=== PATIENT | female | born 1995 | race Caucasian/White ===

== ENCOUNTER 2023-04-12 12:16 | Outpatient (REF) | payer OTHER, SELFPAY ==
[2023-04-12 13:25] LABS: Influenza Virus A Antigen Positive; Influenza Virus B Antigen Negative; Internal Control Within Normal Limits
== END 2023-04-12 12:17 | disposition home or self-care (01) ==
LOC: LAB 12:16
PROVIDERS: PCP Family Medicine; Visit Provider Family Medicine
DX: R05.9 Cough, unspecified (principal)
CPT/HCPCS: 87804

== ENCOUNTER 2023-06-08 15:52 | Outpatient (OUT) | payer OTHER, SELFPAY ==
[2023-06-08 16:46] LABS: Estimated Average Glucose 100 mg/dL; Glycohemoglobin A1C 5.1 % (4.5-6.2)
[2023-06-10 06:09] LABS: HBsAg Screen Negative (Negative); HCV Ab Non Reactive (Non Reactive); HIV Ab/p24 Ag Screen Non Reactive (Non Reactive); Hep A Ab, IgM Negative (Negative); Hep B Core Ab, IgM Negative (Negative)
[2023-06-10 11:09] LABS: Rapid Plasma Reagin, Quant Non Reactive titer (NonRea<1:1)
== END 2023-06-08 15:53 | disposition home or self-care (01) ==
LOC: LAB 15:54
PROVIDERS: PCP Family Medicine; Visit Provider Obstetrics & Gynecology
DX: R10.2 Pelvic and perineal pain (principal); B37.0 Candidal stomatitis
CPT/HCPCS: 36415; 80074; 83036; 86592; 87389

== ENCOUNTER 2023-07-06 22:16 | Outpatient (REF) | payer OTHER, SELFPAY ==
[2023-07-12 13:09] LABS: Age Gdln ACOG Testing Note (.); IGP, rfx Aptima HPV ASCU Note (.)
== END 2023-07-06 22:17 | disposition home or self-care (01) ==
LOC: LAB 22:16
PROVIDERS: PCP Family Medicine; Visit Provider Obstetrics & Gynecology
DX: Z01.419 Encounter for gynecological examination (general) (routine) without abnormal findings (principal)
CPT/HCPCS: G0145

== ENCOUNTER 2023-12-28 16:19 | Outpatient (OUT) | payer OTHER, SELFPAY ==
--- OUTSIDE RECORDS SUMMARY | 2023-12-28 16:27 | XMS_ITS | CCD ---
Author Organization [facility] CliniSynh Care Team Providers Care Surveillance Systems Engineer Name Role Phone Stephanie Laguerre Primary Care Physician [phone] RAJIV, DR CELESTIN Consulting Unavailable RAJIV, DR CELESTIN Admitting Unavailable REQUEST, DR NONE LISTED Primary Care Unavaila ble RAJIV, DR CELESTIN Attending Unavailable RAJIV, DR CELESTIN Consulting Unavailable RAJIV, DR CELESTIN Admitting Unavailable REQUEST, DR DANIELA LISTED Primary Care Unavaila ble RAJIV, DR CELESTIN Attending Unavailable LCY, DR BROWN Primary Care Unavailable HOY, DR BROWN Admitting Unavailable HOY, DR BROWN Attending Unavailable HOY, DR BROWN Consulting Unavailable WEST, DR NELLY Epstein Consulting Unavailable MARILYN SHAW Consulting Unavailable NILL, DR CALL Attending Unavailable NILL, DR CALL Admitting Unavailable HOY, DR BROWN Primary Care Unavailable SHADE, DR BROWN Consulting Unavailable RAJIV, DR CELESTIN Consulting Unavailable RAJIV, DR CELESTIN Admitting Unavailable REQUEST, DR DANIELA LISTED Primary Care Unavaila ble RAJIV, DR CELESTIN Attending Unavailable KARASIK, DR SHIPMAN Attending Unavailable KARASIK, DR SHIPMAN Consulting Unavailable KARASIK, DR SHIPMAN Admitting Unavailable REQUEST, DR NONE LISTED Primary Care Unavaila ble ABDIFATAH, DR NELLY Epstein Consulting Unavailable RAJIV, DR CELESTIN Consulting Unavailable RAJIV, DR CELESTIN Consulting Unavailable RAJIV, DR CELESTIN Admitting Unavailable REQUEST, DR NONE LISTED Primary Care Unavaila ble RAJIV, DR CELESTIN Attending Unavailable ZIEBMARLON, DR TEENA Sanchez Consulting Unavailable RAJIV, DR CELESTIN Consulting Unavailable RAJIV, DR CELESTIN Admitting Unavailable HOY, DR BROWN Primary Care Unavailable RAJIV, DR CELESTIN Attending Unavailable RAJIV, DR CELESTIN Admitting Unavailable RAJIV, DR CELESTIN Primary Care Unavailable ABDIFATAH, DR NELLY Epstein Consulting Unavailable RAJIV, DR CELESTIN Attending Unavailable RAJIV, DR CELESTIN Consulting Unavailable RAJIV, DR CELESTIN Consulting Unavailable RAJIV, DR CELESTIN Admitting Unavailable REQUEST, DR NONE LISTED Primary Care Unavaila ble RAJIV, DR CELESTIN Attending Unavailable RAJIV, DR CELESTIN Consulting Unavailable RAJIV, DR CELESTIN Admitting Unavailable RAJIV, DR CELESTIN Primary Care Unavailable RAJIV, DR CELESTIN Attending Unavailable RAJIV, DR CELESTIN Admitting Unavailable RAJIV, DR CELESTIN Primary Care Unavailable WEST, DR NELLY Epstein Consulting Unavailable RAJIV, DR CELESTIN Attending Unavailable RAJIV, DR CELESTIN Consulting Unavailable RAJIV, DR CELESTIN Consulting Unavailable RAJIV, DR CELESTIN Admitting Unavailable RAJIV, DR CELESTIN Attending Unavailable REQUEST, DR NONE LISTED Primary Care Unavaila ble HOY, DR BROWN Admitting Unavailable HOY, DR BROWN Attending Unavailable HOY, DR BROWN Consulting Unavailable HOY, DR BROWN Primary Care Unavailable RAJIV, DR CELESTIN Admitting Unavailable WEST, DR NELLY Epstein Consulting Unavailable REQUEST, DR NONE LISTED Primary Care Unavaila ble RAJIV, DR CELESTIN Attending Unavailable RAJIV, DR CELESTIN Consulting Unavailable VALERIA, MARILYN Admitting Unavailable VALERIA, MARILYN Attending Unavailable RAJIV, DR CELESTIN Primary Care Unavailable Mayco, Nelly Consulting Unavailable VALERIA, MARILYN Consulting Unavailable KARASIK, DR SHIPMAN Consulting Unavailable KARASIK, DR SHIPMAN Admitting Unavailable KARASIK, DR SHIPMAN Attending Unavailable REQUEST, DR NONE LISTED Primary Care Unavaila ble RAJIV, DR CELESTIN Consulting Unavailable ZIEBER, DR TEENA Sanchez Consulting Unavailable KARASIK, DR SHIPMAN Consulting Unavailable KARASIK, DR SHIPMAN Admitting Unavailable KARASIK, DR SHIPMAN Attending Unavailable REQUEST, DR NONE LISTED Primary Care Unavaila ble RAJIV, DR CELESTIN Consulting Unavailable ZIEBER, DR TEENA Sanchez Consulting Unavailable KARASIK, DR SHIPMAN Attending Unavailable KARASIK, DR SHIPMAN Consulting Unavailable KARASIK, DR SHIPMAN Admitting Unavailable REQUEST, DR NONE LISTED Primary Care Unavaila ble RAJIV, DR CELESTIN Consulting Unavailable RAJIV, DR CELESTIN Admitting Unavailable RAJIV, DR CELESTIN Attending Unavailable REQUEST, DR NONE LISTED Primary Care Unavaila ble RAJIV, DR CELESTIN Consulting Unavailable RAJIV, DR CELESTIN Admitting Unavailable RAJIV, DR CELESTIN Attending Unavailable REQUEST, DR NONE LISTED Primary Care Unavaila ble KARASIK, DR SHIPMAN Attending Unavailable KARASIK, DR SHIPMAN Consulting Unavailable KARASIK, DR SHIPMAN Admitting Unavailable REQUEST, NONE LISTED Primary Care Unavaila ble WEST, DR NELLY Epstein Consulting Unavailable RAJIV, DR CELESTIN Consulting Unavailable RAJIV, DR CELESTIN Attending Unavailable RAJIV, DR CELESTIN Consulting Unavailable RAJIV, DR CELESTIN Admitting Unavailable REQUEST, DR NONE LISTED Primary Care Unavaila ble KARASIK, DR SHIPMAN Consulting Unavailable KARASIK, DR SHIPMAN Admitting Unavailable KARASIK, DR SHIPMAN Attending Unavailable REQUEST, DR NONE LISTED Primary Care Unavaila ble WEST, DR NELLY Epstein Consulting Unavailable RAJIV, DR CELESTIN Consulting Unavailable RAJIV, DR CELESTIN Admitting Unavailable RAJIV, DR CELESTIN Consulting Unavailable RAJIV, DR CELESTIN Attending Unavailable REQUEST, DR NONE LISTED Primary Care Unavaila ble ZIEBER, DR TEENA Sanchez Consulting Unavailable RAJIV, DR CELESTIN Admitting Unavailable REQUEST, DR NONE LISTED Primary Care Unavaila ble RAJIV, DR CELESTIN Attending Unavailable NILL, DR CALL Attending Unavailable NILL, DR CALL Admitting Unavailable HOY, DR BROWN Primary Care Unavailable HOY, DR BROWN Consulting Unavailable NILL, DR CALL Consulting Unavailable BLAKE, ROHAN Consulting Unavailable MCCORNACK, TEENA Consulting Unavailable VALERIA, MARILYN Admitting Unavailable VALERIA, MARILYN Attending Unavailable RAJIV, DR CELESTIN Primary Care Unavailable TRIPLETT, DR HERNANDEZ Consulting Unavailable RAJIV, DR CELESTIN Consulting Unavailable RAJIV, DR CELESTIN Admitting Unavailable RAJIV, DR CELESTIN Attending Unavailable REQUEST, DR NONE LISTED Primary Care Unavaila ble AGUBOSIM, MISAEL Consulting Unavailable RAJIV, DR CELESTIN Procedure Practitioner Unavailab le RAJIV, DR CELESTIN Admitting Unavailable WEST, DR NELLY Epstein Consulting Unavailable RAJIV, DR CELESTIN Attending Unavailable REQUEST, DR DANIELA LISTED Primary Care Unavaila ble RAJIV, DR CELESTIN Consulting Unavailable NILL, DR CALL Consulting Unavailable NILL, DR CALL Admitting Unavailable NILL, DR CALL Attending Unavailable HOY, DR BROWN Primary Care Unavailable RAJIV, DR CELESTIN Admitting Unavailable RAJIV, DR CELESTIN Attending Unavailable REQUEST, DR NONE LISTED Primary Care Unavaila ble RAJIV, DR CELESTIN Consulting Unavailable RAJIV, DR CELESTIN Admitting Unavailable RAJIV, DR CELESTIN Primary Care Unavailable RAJIV, DR CELESTIN Attending Unavailable RAJIV, DR CELESTIN Admitting Unavailable RAJIV, DR CELESTIN Consulting Unavailable RAJIV, DR CELESTIN Attending Unavailable REQUEST, NONE LISTED Primary Care Unavaila ble RAJIV, DR CELESTIN Attending Unavailable RAJIV, DR CELESTIN Admitting Unavailable REQUEST, NONE LISTED Primary Care Unavaila ble KARASIK, DR SHIPMAN Consulting Unavailable KARASIK, DR SHIPMAN Admitting Unavailable KARASIK, DR SHIPMAN Attending Unavailable REQUEST, NONE LISTED Primary Care Unavaila ble RAJIV, DR CELESTIN Consulting Unavailable ZIEBER, DR TEENA Sanchez Consulting Unavailable RAJIV, DR CELESTIN Admitting Unavailable RAJIV, DR CELESTIN Attending Unavailable REQUEST, NONE LISTED Primary Care Unavaila ble RAJIV, DR CELESTIN Admitting Unavailable REQUEST, NONE LISTED Primary Care Unavaila ble RAJIV, DR CELESTIN Attending Unavailable Shade UNDERWOOD, Stephanie Primary Care Provider [phone] FAWAD VANCE Attending Unavailable RAJIV, FAWAD Attending Unavailable RAJIV, FAWAD Attending Unavailable Medications Current Medications Medication Drug Class(es) Dates Sig (Normalized) Sig (Original) b complex vitamins capsule (3 sources) take 1 capsule by mouth once daily b complex vitamins capsule Take 1 capsule by mouth Daily Active ibuprofen 800 mg oral tablet (2 sources) Nonsteroidal Anti-inflammatory Drug Start: 08-21-2021 take 1 tablet by mouth every eight hours as needed for pain ibuprofen 800 mg Tab 800 mg = 1 tab(s), Oral, q8hr, PRN as needed for pain, Refills(s) 0 Start Date: 08/21/21 Status: Ordered levonorgestrel 0.234524 mg/hr intrauterine system (3 sources) Progestin, Progestin-containi ng Intrauterine Device Levonorgestrel (Mirena, 52 MG,) 20 MCG/DAY intrauterine device as directed Intrauterine Active 24 hr metFORMIN hydrochloride 500 mg extended release oral tablet (2 sources) Biguanide Start: 12-26-2023 End: 01-25-2024 take 1 tablet by mouth every twenty-four hours at mealtime metFORMIN XR (Glucophage-XR) 500 MG 24 hr tablet Indications: Encounter for weight management Take 1 tablet (500 mg) by mouth in the evening. Take with meals Do not crush, chew, or split. 30 tablet 11 12/26/2023 01/25/2024 Active multivitamin with minerals (Cerovite) 18-400 mg-mcg tablet tablet (3 sources) take 1 tablet by mouth once daily multivitamin with minerals (Cerovite) 18-400 mg-mcg tablet tablet Take 1 tablet by mouth Daily Active [place] (No Known Home Meds) (1 source) Start: 11-28-2023 [place] (No Known Home Meds) Active November 28, 2023 12:00am Multivitamins with Vitamin B Complex, Vitamin C, Minerals and L-Methylfolate oral capsule (2 sources) Start: 08-21-2021 Multivitamins with Vitamin B Complex, Vitamin C, Minerals and L-Methylfolate oral capsule 1 cap(s), Oral, Daily, 30 cap(s), Refill(s) 0 Start Date: 08/21/21 Status: Ordered Zofran ODT 4 mg Tab-Dis (1 source) Start: 08-09-2017 take 1 tablet by mouth three times daily Zofran ODT 4 mg Tab-Dis 4 mg = 1 tab(s), Oral, TID, # 15 tab(s), Refills(s) 0 Start Date: 08/09/17 Status: Ordered Completed/Discontinued Medications Medication Drug Class(es) Dates Sig (Normalized) Sig (Original) nystatin 657369 unt/ml oral suspension (1 source) Polyene Antifungal Start: 06-07-2023 End: 11-28-2023 take 1 mL by mouth every six hours Nystatin Discontinued 4 ML PO Q6H 224 14 June 07, 2023 12:00am November 28, 2023 4:45pm Problems Active Problems Problem Classification Problem Date Documented Date Episodic/Chronic Abdominal pain (13 sources) Unspecified abdominal pain; Translations: [Right upper quadrant pain] Onset: 02-09-2021 Episodic Administrative/social admission (4 sources) Patient encounter status; Translations: [Persons encountering health services in other specified circumstances] Onset: 12-26-2023 12-26-2023 Episodic Asthma (3 sources) Asthma; Translations: [Unspecified asthma, uncomplicated] Onset: 09-18-2021 08-21-2021 Chronic Attention-deficit, conduct, and disruptive behavior disorders (2 sources) Attention deficit hyperactivity disorder 08-21-2021 Chronic Attention-deficit, conduct, and disruptive behavior disorders (1 source) Attention-deficit hyperactivity disorder, unspecified type; Translations: [ADHD UNSPECIFIED TYPE] Onset: 09-18-2021 Chronic Biliary tract disease (3 sources) Chronic cholecystitis with calculus; Translations: [Calculus of gallbladder with chronic cholecystitis without obstruction] Onset: 09-18-2021 Episodic Contraceptive and procreative management (8 sources) Intrauterine contraceptive device in situ; Translations: [Encounter for routine checking of intrauterine contraceptive device] Onset: 12-26-2023 12-26-2023 Episodic Deficiency and other anemia (1 source) Iron deficiency anemia, unspecified; Translations: [IRON DEFICIENCY ANEMIA UNSPECIFIED] Onset: 08-19-2021 Episodic Diseases of mouth; excluding dental (2 sources) Ulcer of mouth; Translations: [Other forms of stomatitis] 11-28-2023 Episodic Esophageal disorders (3 sources) Gastroesophageal reflux disease; Translations: [Gastro-esophageal reflux disease without esophagitis] Onset: 09-18-2021 08-21-2021 Chronic Fetopelvic disproportion; obstruction (1 source) Maternal care for disproportion, unspecified; Translations: [MATERNAL CARE FOR DISPROPORTION UNS] Onset: 07-23-2021 Episodic Fluid and electrolyte disorders (1 source) Dehydration; Translations: [DEHYDRATION] Onset: 08-19-2021 Episodic Headache; including migraine (2 sources) Migraine 08-21-2021 Chronic Malposition; malpresentation (1 source) Maternal care for high head at term, not applicable or unspecified; Translations: [MATERNAL CARE HIGH HEAD TERM NA/UNS] Onset: 07-23-2021 Episodic Menstrual disorders (8 sources) Irregular menstruation, unspecified; Translations: [Irregular periods] Onset: 12-05-2020 Chronic Other complications of ; puerperium affecting management of mother (1 source) Anemia of the puerperium; Translations: [ANEMIA OF THE PUERPERIUM] Onset: 08-19-2021 Chronic Other complications of ; puerperium affecting management of mother (1 source) Other complications of the puerperium, not elsewhere classified; Translations: [OTHER COMPLICATIONS PUERPERIUM NEC] Onset: 08-19-2021 Episodic Other complications of (5 sources) Other specified related conditions, third trimester; Translations: [OTH SPEC PREG RELATED COND 3RD TRI] Onset: 06-05-2021 Episodic Other complications of (5 sources) Maternal care for excessive growth, third trimester, not applicable or unspecified; Translations: [MAT CARE EXCSS FTL GRTH 3RD TRI UNS] Onset: 07-02-2021 Episodic Other endocrine disorders (4 sources) Polycystic ovary syndrome; Translations: [Polycystic ovarian syndrome] Onset: 12-26-2023 12-26-2023 Chronic Other nutritional; endocrine; and metabolic disorders (2 sources) Body mass index 30+ - obesity 09-01-2021 Chronic Other nutritional; endocrine; and metabolic disorders (3 sources) Obese class I; Translations: [Class 1 obesity] Onset: 08-11-2022 08-11-2022 Chronic Other and delivery including normal (14 sources) Encounter for care and examination of lactating mother; Translations: [Encounter for routine follow-up] Onset: 12-12-2020 Episodic Other screening for suspected conditions (not mental disorders or infectious disease) (14 sources) Other specified abnormal findings of blood chemistry; Translations: [Encounter for screening for Streptococcus B] Onset: 12-27-2020 Episodic Other upper respiratory disease (1 source) Nasal congestion; Translations: [NASAL CONGESTION] Onset: 10-03-2021 Episodic Pancreatic disorders (not diabetes) (7 sources) Gallstone acute pancreatitis; Translations: [Biliary acute pancreatitis without necrosis or infection] Onset: 09-01-2021 Episodic Polyhydramnios and other problems of amniotic cavity (9 sources) Polyhydramnios, third trimester, not applicable or unspecified; Translations: [Polyhydramnios, unspecified trimester, not applicable or unspecified] Onset: 05-28-2021 Episodic Residual codes; unclassified (1 source) Type O blood, Rh negative; Translations: [TYPE O BLOOD RH NEGATIVE] Onset: 07-23-2021 Episodic Residual codes; unclassified (1 source) 39 weeks gestation of ; Translations: [39 WEEKS GESTATION OF ] Onset: 07-23-2021 Episodic Residual codes; unclassified (1 source) 38 weeks gestation of ; Translations: [38 WEEKS GESTATION OF ] Onset: 07-10-2021 Episodic Screening and history of mental health and substance abuse codes (1 source) Personal history of nicotine dependence; Translations: [PERSONAL HISTORY OF NICOTINE DEPEND] Onset: 07-23-2021 Episodic Unclassified (4 sources) CONTACT W/AND (SUSP) EXPOS COVID-19; Translations: [CONTACT W/AND (SUSP) EXPOS COVID-19] Onset: 09-16-2021 Unclassified (1 source) COUGH, UNSPECIFIED; Translations: [COUGH, UNSPECIFIED] Onset: 10-03-2021 Past or Other Problems Problem Classification Problem Date Documented Date Episodic/Chronic Diabetes mellitus without complication (4 sources) Other abnormal glucose; Translations: [OTHER ABNORMAL GLUCOSE] Onset: 04-27-2021 Episodic Hemorrhage during ; abruptio placenta; placenta previa (1 source) Low lying placenta NOS or without hemorrhage, second trimester; Translations: [LOW LYING PL NOS W/O HEMORR 2ND TRI] Onset: 03-10-2021 Episodic Immunizations and screening for infectious disease (5 sources) Encounter for screening for infections with a predominantly sexual mode of transmission; Translations: [Contact with and (suspected) exposure to infections with a predominantly sexual mode of transmission] Onset: 12-27-2020 Episodic Nausea and vomiting (1 source) Vomiting, unspecified; Translations: [VOMITING UNSPECIFIED] Onset: 06-09-2021 Episodic Other complications of ; puerperium affecting management of mother (4 sources) Maternal care for other (suspected) abnormality and damage, not applicable or unspecified; Translations: [MAT CARE OTH ABN DAMGE NA/UNS] Onset: 04-07-2021 Episodic Other complications of (1 source) Decreased movements, third trimester, not applicable or unspecified; Translations: [DECR MOVEMENTS 3RD TRI NA/UNS] Onset: 06-23-2021 Episodic Other complications of (4 sources) Other specified related conditions, second trimester; Translations: [OTH SPEC PREG RELATED COND 2ND TRI] Onset: 02-08-2021 Episodic Other female genital disorders (4 sources) Other specified noninflammatory disorders of vagina; Translations: [OTH SPEC NONINFLAMMATORY D/O VAGINA] Onset: 01-21-2021 Episodic Residual codes; unclassified (1 source) 37 weeks gestation of ; Translations: [37 WEEKS GESTATION OF ] Onset: 07-06-2021 Episodic Residual codes; unclassified (1 source) 36 weeks gestation of ; Translations: [36 WEEKS GESTATION OF ] Onset: 06-26-2021 Episodic Residual codes; unclassified (1 source) 35 weeks gestation of ; Translations: [35 WEEKS GESTATION OF ] Onset: 06-23-2021 Episodic Residual codes; unclassified (1 source) 34 weeks gestation of ; Translations: [34 WEEKS GESTATION OF ] Onset: 06-17-2021 Episodic Residual codes; unclassified (1 source) 33 weeks gestation of ; Translations: [33 WEEKS GESTATION OF ] Onset: 06-09-2021 Episodic Residual codes; unclassified (1 source) 32 weeks gestation of ; Translations: [32 WEEKS GESTATION OF ] Onset: 05-28-2021 Episodic Residual codes; unclassified (1 source) Unspecified blood type, Rh negative; Translations: [UNSPECIFIED BLOOD TYPE RH NEGATIVE] Onset: 04-30-2021 Episodic Residual codes; unclassified (1 source) 28 weeks gestation of ; Translations: [28 WEEKS GESTATION OF ] Onset: 04-30-2021 Episodic Residual codes; unclassified (1 source) 21 weeks gestation of ; Translations: [21 WEEKS GESTATION OF ] Onset: 03-10-2021 Episodic Residual codes; unclassified (1 source) 17 weeks gestation of ; Translations: [17 WEEKS GESTATION OF ] Onset: 02-09-2021 Episodic Residual codes; unclassified (1 source) Less than 8 weeks gestation of ; Translations: [< 8 WEEKS GESTATION ] Onset: 12-12-2020 Episodic Unclassified (1 source) CONTACT W/AND (SUSP) EXPOS COVID-19; Translations: [CONTACT W/AND (SUSP) EXPOS COVID-19] Onset: 09-30-2021 Results Test Name Value Interpretation Reference Range Facility No Panel Informationon 12-25 Carlyn Lopez LPN 12/27/2023 9:22 AM IUD Removal Date/Time: 12/26/2023 5:08 PM Performed by: Fawad Vance DO Authorized by: Fawad Vance DO Consent: Consent obtained: Verbal Consent given by: Patient Procedure risks and benefits discussed: yes Patient questions answered: yes Patient agrees, verbalizes understanding, and wants to proceed: yes Educational handouts given: no Instructions and paperwork completed: no Procedure: Removed with no complications: yes Removal due to mechanical complications of IUD: no Removal due to infection and inflammatory reaction: no Other reason for removal: Pelvic Pain [facility] ([facility])on 09-05 SARS-CoV-2 (COVID-19) RNA LOUIE+probe Ql (Unsp spec) Not detected Normal NOT DETECTED [facility] Comment on above: Result Comment: This test is not yet approved or cleared by the [place] FDA. When there are no FDA-approved or cleared tests available, and other criteria are met, FDA can make tests available under an emergency access mechanism called an Emergency Use Authorization (EUA). The EUA for this test is supported by the [place] of Health and Human Service's (HHS's) declaration that circumstances exist to justify the emergency use of in vitro diagnostics for the detection and/or diagnosis of the virus that causes COVID-19. This EUA will remain in effect (meaning this test can be used) for the duration of the COVID-19 declaration justifying emergency of IVDs, unless it is terminated or revoked by FDA (after which the test may no longer be used). When diagnostic testing is negative, the possibility of a false negative should be considered in the context of a patient's recent exposures and the presence of clinical signs and symptoms consistent with SARS-CoV-2. Performed By: #### G 1HR #### [facility] [address] [address] [address] Emilia Snell Ambulatory Visit Summaryon 0 09-22-2021 Ambulatory Visit Summary MARISSA LARA :1995 Visit Date:09/22/2021 Ambulatory Visit Instructions Your Diagnosis Cholelithiasis with chronic cholecystitis Your Care Team Attending Physician - LEX UNDERWOOD, Jakub Sanchez Primary Care Physician - Stephanie Laguerre MD This Is Your Medications List Contact prescribing physician if questions or concerns ibuprofen (ibuprofen 800 mg Tab) multivitamin, ( Multivitamins with Vitamin B Complex, Vitamin C, Minerals and L-Methylfolate oral capsule) Procedures Performed Laparoscopic cholecystectomy (09/16/2021), section (2021), Tonsillectomy and adenoidectomy. Medications What How Much When Instructions Unchanged ibuprofen (ibuprofen 800 mg Tab) 1 Tablets By Mouth Every 8 hours as needed for as needed for pain Contact prescribing physician if questions or concerns Unchanged multivitamin, ( Multivitamins with Vitamin B Complex, Vitamin C, Minerals and L-Methylfolate oral capsule) 1 Capsules By Mouth Every day Contact prescribing physician if questions or concerns Allergies No Known Allergies No Known Medication Allergies Problems Ongoing - Any problem that you are currently receiving treatment for. ADHD Asthma BMI 30.0-30.9,adult Cholelithiasis with chronic cholecystitis Gallstone pancreatitis GERD (gastroesophageal reflux disease) Migraines Normal [facility] General Surgery Office/Clini c Noteon 09-22-2021 General Surgery Office/Clinic Note Chief Complaint post operative follow up HPI Staff 6 day post operative follow up post cholecystectomy. Denies pain, no use of pain medication. Denies bleeding or drainage. Denies nausea or vomiting. History of Present Illness 6 days s/p LS cholecystectomy, doing well, denies pain, no fevers, no drainage from incisions; no N/V; one episode of loose stools after fatty meal. Review of Systems ROS - Provider Constitutional: no fever, no sweats, no weight loss. Eyes: no glasses, no blurred vision, no visual loss. ENMT: no dentures, no hoarseness, no swallowing difficulties, no hearing loss, no ear infection(s), no nose bleeds. Cardiovascular: normal blood pressure, no chest pain, regular heartbeat, no heart murmur. Respiratory: no shortness of breath, no cough, no asthma, no wheezing. Gastrointestinal: no nausea, no vomiting, no diarrhea, no constipation, no blood in stool, no change in bowel habits, mild abdominal pain, no hepatitis. Genitourinary: no kidney stones, no urine infection, no dysuria. Musculoskeletal: no pain, no weakness. Skin: no changing moles, no rash, no skin lumps. Neurologic: no seizures, no epilepsy, no headache. Psychiatric: no emotional or psychiatric problem. Heme/Lymph: no bleeding problems, no anemia, no blood clots, no transfusions. Allergy/Immunologic: no swollen lymph nodes/glands, no IV drug abuse. Other: Additional ROS info: Except as noted in the above Review of Systems and in the History of Present Illness, all other systems have been reviewed and are negative or noncontributory. s Physical Exam abd: soft, nontender, nondistended; incisions without erythema or drainage, glue intact; normal bs. Assessment/Plan 1. Cholelithiasis with chronic cholecystitis (K80.10: Calculus of gallbladder with chronic cholecystitis without obstruction) doing well; continue no lifting > 10 lbs for 3 weeks; call with problems/questions. Follow-up No qualifying data available Problem List/Past Medical History Ongoing ADHD Asthma BMI 30.0-30.9,adult Cholelithiasis with chronic cholecystitis Gallstone pancreatitis GERD (gastroesophageal reflux disease) Migraines Historical No qualifying data Procedure/Surgical History Laparoscopic cholecystectomy (09/16/2021), section (2021), Tonsillectomy and adenoidectomy. Medications ibuprofen 800 mg Tab, 800 mg= 1 tab(s), Oral, q8hr, PRN Multivitamins with Vitamin B Complex, Vitamin C, Minerals and L-Methylfolate oral capsule, 1 cap(s), Oral, Daily Allergies No Known Allergies No Known Medication Allergies Social History Alcohol - Denies Alcohol Use, 08/09/2017 Substance Abuse - Denies Substance Abuse, 08/09/2017 Tobacco - Denies Tobacco Use, 08/09/2017 Never (less than 100 in lifetime) Tobacco Use:. Never Smokeless Tobacco Use:., 09/01/2021 Family History Family history is negative Normal [facility] Comment on above: Result Comment: Elec tronically Signed By: LEX UNDERWOOD, Jakub Thomas\Date and Time Signed: 09/22/21 15:00 EDT Pathology Noteon 09-18-2021 Pathology Note [id number]:127 Normal [facility] Operative Reporton Operative Report [id number]:127 Normal [facility] PREG HCG QUALon 09-16-2021 , QUAL Negative Normal NEGATIVE [facility] Comment on above: Performed By: #### A BID #### [facility] [address] [place] [address] Dr. Emilia Snell Lab Reportson 09-14-2021 Lab Reports [id number]:127 Normal [facility] Covid-19 PCR (CVDTBH)on SARS-CoV-2 (COVID-19) RNA LOUIE+probe Ql (Unsp spec) Not detected Normal NOT DETECTED [facility] Comment on above: Result Comment: This test is not yet approved or cleared by the [place] FDA. When there are no FDA-approved or cleared tests available, and other criteria are met, FDA can make tests available under an emergency access mechanism called an Emergency Use Authorization (EUA). The EUA for this test is supported by the [employer] Feeder of Health and Human Service's (HHS's) declaration that circumstances exist to justify the emergency use of in vitro diagnostics for the detection and/or diagnosis of the virus that causes COVID-19. This EUA will remain in effect (meaning this test can be used) for the duration of the COVID-19 declaration justifying emergency of IVDs, unless it is terminated or revoked by FDA (after which the test may no longer be used). When diagnostic testing is negative, the possibility of a false negative should be considered in the context of a patient's recent exposures and the presence of clinical signs and symptoms consistent with SARS-CoV-2. Performed By: #### [facility] [place] [facility] [address] [place] [address] Dr. Emilia Snell Ambulatory Visit Summaryon 0 09-01-2021 Ambulatory Visit Summary MARISSA LARA :1995 Visit Date:09/01/2021 Ambulatory Visit Instructions Your Care Team Attending Physician - LEX UNDERWOOD, Jakub Sanchez Primary Care Physician - Stephanie Laguerre MD This Is Your Medications List Contact prescribing physician if questions or concerns ibuprofen (ibuprofen 800 mg Tab) multivitamin, ( Multivitamins with Vitamin B Complex, Vitamin C, Minerals and L-Methylfolate oral capsule) ondansetron (Zofran ODT 4 mg Tab-Dis) Procedures Performed section (2021), Tonsillectomy and adenoidectomy. Discharge Vitals Heart Rate (Peripheral) 79 Respiratory Rate 16 Blood Pressure 104/65 Height 170.18 cm Height 170.2 cm Weight 88.5 kg Weight 88.5 kg BMI 30.56 Medications What How Much When Instructions Unchanged ibuprofen (ibuprofen 800 mg Tab) 1 Tablets By Mouth Every 8 hours as needed for as needed for pain Contact prescribing physician if questions or concerns Unchanged multivitamin, ( Multivitamins with Vitamin B Complex, Vitamin C, Minerals and L-Methylfolate oral capsule) 1 Capsules By Mouth Every day Contact prescribing physician if questions or concerns Unchanged ondansetron (Zofran ODT 4 mg Tab-Dis) 1 Tablets By Mouth 3 times a day Contact prescribing physician if questions or concerns Allergies No Known Allergies No Known Medication Allergies Problems Ongoing - Any problem that you are currently receiving treatment for. ADHD Asthma BMI 30.0-30.9,adult GERD (gastroesophageal reflux disease) Migraines Normal [facility] Consent for Procedure/Surger yon 09-01-2021 Consent for Procedure/Surgery [id number]:127 Normal [facility] Physician Referralon 022 Physician Referral [id number] .[id number]:127 Normal [facility] AMYLASEon 08-16-2021 Amylase [Catalytic activity/Vol] 81 U/L Normal 25-115 [facility] Comment on above: Performed By: #### T NS #### [facility] [address] [place] [address] Dr. Emilia Snell CBC AUTO DIFFon 08-16-2021 BASO # 0.0 103/ul Normal 0.0-0.1 [facility] Comment on above: Performed By: #### T NS #### [facility] [address] [address] [address] Emilia Snell Basophils/100 WBC (Bld) 0.3 % Normal 0.2-2.0 [facility] Comment on above: Performed By: #### T NS #### [facility] [address] [place] [address] Dr. Emilia Snell EO # 0.3 103/ul Normal 0.0-0.7 [facility] Comment on above: Performed By: #### T NS #### [facility] [address] [place] [address] Dr. Emilia Snell Eosinophils/100 WBC (Bld) 3.0 % Normal 0.9-7.0 [facility] Comment on above: Performed By: #### T NS #### [facility] [address] [place] [address] Dr. Emilia Snell Erythrocyte distribution width (RBC) [Ratio] 13.0 % Normal 11.0-15.0 [facility] Comment on above: Performed By: #### T NS #### [facility] [address] [place] [address] Dr. Emilia Snell Hematocrit (Bld) [Volume fraction] 31.1 % Critically low 36.0-48.0 [facility] Comment on above: Performed By: #### T NS #### [facility] [address] [place] [address] Dr. Emilia Snell Hemoglobin (Bld) [Mass/Vol] 10.3 g/dL Critically low 12.0-16.0 [facility] Comment on above: Performed By: #### T NS #### [facility] [address] [place] [address] Dr. Emilia Snell IG # 0.03 10e3/ul Normal 0.00-0.03 [facility] Comment on above: Performed By: #### T NS #### [facility] [address] [place] [address] Dr. Emilia Snell IG % 0.3 % Normal 0.0-0.5 [facility] Comment on above: Performed By: #### T NS #### [facility] [address] [place] [address] Dr. Emilia Snell LYMPH # 2.2 103/ul Normal 1.2-3.8 [facility] Comment on above: Performed By: #### T NS #### [facility] [address] [place] [address] Dr. Emilia Snell Lymphocytes/100 WBC (Bld) 22.8 % Normal 20.5-60.0 [facility] Comment on above: Performed By: #### T NS #### [facility] [address] [place] [address] Dr. Emilia Snell MANUAL DIFF REQ NO Normal [facility] Comment on above: Performed By: #### T NS #### [facility] [address] [place] [address] Dr. Emilia Snell MCH (RBC) [Entitic mass] 30.1 pg Normal 26.7-34.0 [facility] Comment on above: Performed By: #### T NS #### [facility] [address] [place] [address] Dr. Emilia Snell MCHC (RBC) [Mass/Vol] 33.1 g/dL Normal 29.9-35.2 [facility] Comment on above: Performed By: #### T NS #### [facility] [address] [place] [address] Dr. Emilia Snell MCV (RBC) [Entitic vol] 90.9 fL Normal 81.0-99.0 [facility] Comment on above: Performed By: #### T NS #### [facility] [address] [place] [address] Dr. Emilia Snell MONO # 0.5 103/ul Normal 0.3-0.8 [facility] Comment on above: Performed By: #### T NS #### [facility] [address] [place] [address] Dr. Emilia Snell Monocytes/100 WBC (Bld) 5.3 % Normal 1.7-12.0 [facility] Comment on above: Performed By: #### T NS #### [facility] [address] [place] [address] Dr. Emilia Snell NEUT # 6.6 103/ul Critically high 1.4-6.5 [facility] Comment on above: Performed By: #### T NS #### [facility] [address] [place] [address] Dr. Emilia Snell Neutrophils/100 WBC (Bld) 68.3 % Normal 43.0-75.0 [facility] Comment on above: Performed By: #### T NS #### [facility] [address] [place] [address] Dr. Emilia Snell Platelet mean volume (Bld) [Entitic vol] 9.4 fL Critically low 9.5-13.5 [facility] Comment on above: Performed By: #### T NS #### [facility] [address] [place] [address] Dr. Emilia Snell PLT 292 103/ul Normal 150-450 [facility] Comment on above: Performed By: #### T NS #### [facility] [address] [address] [address] Emilia Snell RBC 3.42 106/ul Critically low 4.20-5.40 [facility] Comment on above: Performed By: #### T NS #### [facility] [address] [place] [address] Dr. Emilia Snell WBC 9.6 103/ul Normal 4.0-11.0 [facility] Comment on above: Performed By: #### T NS #### [facility] [address] [place] [address] Dr. Emilia Snell LIPASEon 08-16-2021 Lipase [Catalytic activity/Vol] 154.0 U/L Normal 73.0-393.0 [facility] Comment on above: Performed By: #### T NS #### [facility] [address] [place] [address] Dr. Emilia Snell PROF 14(COMP METB)on 022 Albumin [Mass/Vol] 3.1 g/dL Critically low 3.4-5.0 [facility] Comment on above: Performed By: #### T NS #### [facility] [address] [place] [address] Dr. Emilia Snell Albumin/Globulin [Mass ratio] 0.9 {ratio} Normal [facility] Comment on above: Performed By: #### T NS #### [facility] [address] [place] [address] Dr. Emilia Snell ALP [Catalytic activity/Vol] 257 U/L Critically high 46-116 [facility] Comment on above: Performed By: #### T NS #### [facility] [address] [address] [address] Emilia Snell ALT [Catalytic activity/Vol] 272 U/L Critically high 14-59 [facility] Comment on above: Performed By: #### T NS #### [facility] [address] [place] [address] Dr. Emilia Snell Anion gap [Moles/Vol] 16.1 mmol/L Normal [facility] Comment on above: Performed By: #### T NS #### [facility] [address] [address] [address] Emilia Snell AST [Catalytic activity/Vol] 76 U/L Critically high 15-37 [facility] Comment on above: Performed By: #### T NS #### [facility] [address] [place] [address] Dr. Emilia Snell Bilirubin [Mass/Vol] 0.6 mg/dL Normal 0.2-1.0 [facility] Comment on above: Performed By: #### T NS #### [facility] [address] [place] [address] Dr. Emilia Snell Calcium [Mass/Vol] 8.5 mg/dL Normal 8.5-10.1 [facility] Comment on above: Performed By: #### T NS #### [facility] [address] [place] [address] Dr. Emilia Snell Chloride [Moles/Vol] 106 mmol/L Normal 98-107 [facility] Comment on above: Performed By: #### T NS #### [facility] [address] [place] [address] Dr. Emilia Snell CO2 [Moles/Vol] 22.8 mmol/L Normal 21.0-32.0 [facility] Comment on above: Performed By: #### T NS #### [facility] [address] [place] [address] Dr. Emilia Snell Creatinine [Mass/Vol] 0.79 mg/dL Normal 0.55-1.02 [facility] Comment on above: Performed By: #### T NS #### [facility] [address] [place] [address] Dr. Emilia Snell EGFR-AF TURKISH >60 Normal >=60 [facility] Comment on above: Performed By: #### T NS #### [facility] [address] [address] [address] Emilia Snell EGFR-NON AF TURKISH >60 Normal >=60 [facility] Comment on above: Performed By: #### T NS #### [facility] [address] [address] [address] Emilia Snell Globulin (S) [Mass/Vol] 3.6 g/dL Normal [facility] Comment on above: Performed By: #### T NS #### [facility] [address] [address] [address] Emilia Snell Glucose [Mass/Vol] 89 mg/dL Normal 74-106 [facility] Comment on above: Performed By: #### T NS #### [facility] [address] [address] [address] Emilia Snell Potassium [Moles/Vol] 3.9 mmol/L Normal 3.5-5.1 [facility] Comment on above: Performed By: #### T NS #### [facility] [address] [address] [address] Emilia Snell Protein [Mass/Vol] 6.7 g/dL Normal 6.4-8.2 [facility] Comment on above: Performed By: #### T NS #### [facility] [address] [address] [address] Emilia Snell Sodium [Moles/Vol] 141 mmol/L Normal 136-145 [facility] Comment on above: Performed By: #### T NS #### [facility] [address] [address] [address] Emilia Snell Urea nitrogen [Mass/Vol] 13.0 mg/dL Normal 7.0-18.0 [facility] Comment on above: Performed By: #### T NS #### [facility] [address] [address] [address] Emilia Snell Urea nitrogen/Creatinine [Mass ratio] 16.5 mg/mg Normal [facility] Comment on above: Performed By: #### T NS #### [facility] [address] [place] [address] Dr. Emilia Snell AMYLASEon 08-15-2021 Amylase [Catalytic activity/Vol] 324 U/L Critically high 25-115 [facility] Comment on above: Performed By: #### A BID #### [facility] [address] [place] [address] Dr. Emilia Snell CBC AUTO DIFFon 08-15-2021 BASO # 0.0 103/ul Normal 0.0-0.1 [facility] Comment on above: Performed By: #### G LU1HR #### [facility] [address] [place] [address] Dr. Emilia Snell Basophils/100 WBC (Bld) 0.5 % Normal 0.2-2.0 [facility] Comment on above: Performed By: #### G LU1HR #### [facility] [address] [place] [address] Dr. Emilia Snell EO # 0.4 103/ul Normal 0.0-0.7 [facility] Comment on above: Performed By: #### G LU1HR #### [facility] [address] [place] [address] Dr. Emilia Snell Eosinophils/100 WBC (Bld) 4.0 % Normal 0.9-7.0 [facility] Comment on above: Performed By: #### G LU1HR #### [facility] [address] [place] [address] Dr. Emilia Snell Erythrocyte distribution width (RBC) [Ratio] 13.2 % Normal 11.0-15.0 [facility] Comment on above: Performed By: #### G LU1HR #### [facility] [address] [place] [address] Dr. Emilia Snell Hematocrit (Bld) [Volume fraction] 33.2 % Critically low 36.0-48.0 [facility] Comment on above: Performed By: #### G LU1HR #### [facility] [address] [place] [address] Dr. Emliia Snell Hemoglobin (Bld) [Mass/Vol] 10.7 g/dL Critically low 12.0-16.0 [facility] Comment on above: Performed By: #### G LU1HR #### [facility] [address] [place] [address] Dr. Emilia Snell IG # 0.02 10e3/ul Normal 0.00-0.03 [facility] Comment on above: Performed By: #### G LU1HR #### [facility] [address] [place] [address] Dr. Emilia Snell IG % 0.2 % Normal 0.0-0.5 [facility] Comment on above: Performed By: #### G LU1HR #### [facility] [address] [place] [address] Dr. Emilia Snell LYMPH # 1.9 103/ul Normal 1.2-3.8 [facility] Comment on above: Performed By: #### G LU1HR #### [facility] [address] [place] [address] Dr. Emilia Snell Lymphocytes/100 WBC (Bld) 21.8 % Normal 20.5-60.0 [facility] Comment on above: Performed By: #### G LU1HR #### [facility] [address] [place] [address] Dr. Emilia Snell MANUAL DIFF REQ NO Normal [facility] Comment on above: Performed By: #### G LU1HR #### [facility] [address] [place] [address] Dr. Emilia Snell MCH (RBC) [Entitic mass] 29.7 pg Normal 26.7-34.0 [facility] Comment on above: Performed By: #### G LU1HR #### [facility] [address] [place] [address] Dr. Emilia Snell MCHC (RBC) [Mass/Vol] 32.2 g/dL Normal 29.9-35.2 [facility] Comment on above: Performed By: #### G LU1HR #### [facility] [address] [place] [address] Dr. Emliia Snell MCV (RBC) [Entitic vol] 92.2 fL Normal 81.0-99.0 [facility] Comment on above: Performed By: #### G LU1HR #### [facility] [address] [place] [address] Dr. Emilia Snell MONO # 0.4 103/ul Normal 0.3-0.8 [facility] Comment on above: Performed By: #### G LU1HR #### [facility] [address] [place] [address] Dr. Emilia Snell Monocytes/100 WBC (Bld) 4.3 % Normal 1.7-12.0 [facility] Comment on above: Performed By: #### G LU1HR #### [facility] [address] [place] [address] Dr. Emilia Snell NEUT # 6.1 103/ul Normal 1.4-6.5 [facility] Comment on above: Performed By: #### G LU1HR #### [facility] [address] [place] [address] Dr. Emilia Snell Neutrophils/100 WBC (Bld) 69.2 % Normal 43.0-75.0 [facility] Comment on above: Performed By: #### G LU1HR #### [facility] [address] [place] [address] Dr. Emilia Snell Platelet mean volume (Bld) [Entitic vol] 9.3 fL Critically low 9.5-13.5 [facility] Comment on above: Performed By: #### G LU1HR #### [facility] [address] [place] [address] Dr. Emilia Snell PLT 277 103/ul Normal 150-450 [facility] Comment on above: Performed By: #### G LU1HR #### [facility] [address] [place] [address] Dr. Emilia Snell RBC 3.60 106/ul Critically low 4.20-5.40 [facility] Comment on above: Performed By: #### G LU1HR #### [facility] [address] [place] [address] Dr. Emilia Snell WBC 8.9 103/ul Normal 4.0-11.0 [facility] Comment on above: Performed By: #### G LU1HR #### [facility] [address] [place] [address] Dr. Emilia Snell LIPASEon 08-15-2021 Lipase [Catalytic activity/Vol] 1399.0 U/L Critically high 73.0-393.0 [facility] Comment on above: Performed By: #### A BID #### [facility] [address] [place] [address] Dr. Emilia Snell PROF 14(COMP METB)on 022 Albumin [Mass/Vol] 3.1 g/dL Critically low 3.4-5.0 [facility] Comment on above: Performed By: #### A BID #### [facility] [address] [place] [address] Dr. Emilia Snell Albumin/Globulin [Mass ratio] 0.8 {ratio} Normal [facility] Comment on above: Performed By: #### A BID #### [facility] [address] [place] [address] Dr. Emilia Snell ALP [Catalytic activity/Vol] 301 U/L Critically high 46-116 [facility] Comment on above: Performed By: #### A BID #### [facility] [address] [place] [address] Dr. Emilia Snell ALT [Catalytic activity/Vol] 384 U/L Critically high 14-59 [facility] Comment on above: Performed By: #### A BID #### [facility] [address] [place] [address] Dr. Emilia Snell Anion gap [Moles/Vol] 17.7 mmol/L Normal [facility] Comment on above: Performed By: #### A BID #### [facility] [address] [place] [address] Dr. Emilia Snell AST [Catalytic activity/Vol] 176 U/L Critically high 15-37 [facility] Comment on above: Performed By: #### A BID #### [facility] [address] [address] [address] Emilia Snell Bilirubin [Mass/Vol] 0.7 mg/dL Normal 0.2-1.0 [facility] Comment on above: Performed By: #### A BID #### [facility] [address] [place] [address] Dr. Emilia Snell Calcium [Mass/Vol] 8.3 mg/dL Critically low 8.5-10.1 [facility] Comment on above: Performed By: #### A BID #### [facility] [address] [place] [address] Dr. Emilia Snell Chloride [Moles/Vol] 106 mmol/L Normal 98-107 [facility] Comment on above: Performed By: #### A BID #### [facility] [address] [place] [address] Dr. Emilia Snell CO2 [Moles/Vol] 21.9 mmol/L Normal 21.0-32.0 [facility] Comment on above: Performed By: #### A BID #### [facility] [address] [place] [address] Dr. Emilia Snell Creatinine [Mass/Vol] 0.86 mg/dL Normal 0.55-1.02 [facility] Comment on above: Performed By: #### A BID #### [facility] [address] [place] [address] Dr. Emilia Snell EGFR-AF TURKISH >60 Normal >=60 [facility] Comment on above: Performed By: #### A BID #### [facility] [address] [place] [address] Dr. Emilia Snell EGFR-NON AF TURKISH >60 Normal >=60 [facility] Comment on above: Performed By: #### A BID #### [facility] [address] [place] [address] Dr. Emilia Snell Globulin (S) [Mass/Vol] 3.7 g/dL Normal [facility] Comment on above: Performed By: #### A BID #### [facility] [address] [place] [address] Dr. Emilia Snell Glucose [Mass/Vol] 58 mg/dL Critically low 74-106 [facility] Comment on above: Performed By: #### A BID #### [facility] [address] [address] [address] Emilia Snell Potassium [Moles/Vol] 3.6 mmol/L Normal 3.5-5.1 [facility] Comment on above: Performed By: #### A BID #### [facility] [address] [place] [address] Dr. Emilia Snell Protein [Mass/Vol] 6.8 g/dL Normal 6.4-8.2 [facility] Comment on above: Performed By: #### A BID #### [facility] [address] [place] [address] Dr. Emilia Snell Sodium [Moles/Vol] 142 mmol/L Normal 136-145 [facility] Comment on above: Performed By: #### A BID #### [facility] [address] [place] [address] Dr. Emilia Snell Urea nitrogen [Mass/Vol] 19.0 mg/dL Critically high 7.0-18.0 [facility] Comment on above: Performed By: #### A BID #### [facility] [address] [place] [address] Dr. Emilia Snell Urea nitrogen/Creatinine [Mass ratio] 22.1 mg/mg Normal [facility] Comment on above: Performed By: #### A BID #### [facility] [address] [place] [address] Dr. Emilia Snell AMYLASEon 08-14-2021 Amylase [Catalytic activity/Vol] 2198 U/L Critically high 25-115 [facility] Comment on above: Performed By: #### C VDTBH #### [facility] [address] [place] [address] Dr. Emilia Snell CBC AUTO DIFFon 08-14-2021 BASO # 0.0 103/ul Normal 0.0-0.1 [facility] Comment on above: Performed By: #### T NS #### [facility] [address] [place] [address] Dr. Emilia Snell Basophils/100 WBC (Bld) 0.4 % Normal 0.2-2.0 [facility] Comment on above: Performed By: #### T NS #### [facility] [address] [place] [address] Dr. Emilia Snell EO # 0.3 103/ul Normal 0.0-0.7 [facility] Comment on above: Performed By: #### T NS #### [facility] [address] [place] [address] Dr. Emilia Snell Eosinophils/100 WBC (Bld) 2.6 % Normal 0.9-7.0 [facility] Comment on above: Performed By: #### T NS #### [facility] [address] [place] [address] Dr. Emilia Snell Erythrocyte distribution width (RBC) [Ratio] 13.1 % Normal 11.0-15.0 [facility] Comment on above: Performed By: #### T NS #### [facility] [address] [place] [address] Dr. Emilia Snell Hematocrit (Bld) [Volume fraction] 38.5 % Normal 36.0-48.0 [facility] Comment on above: Performed By: #### T NS #### [facility] [address] [place] [address] Dr. Emilia Snell Hemoglobin (Bld) [Mass/Vol] 12.7 g/dL Normal 12.0-16.0 [facility] Comment on above: Performed By: #### T NS #### [facility] [address] [place] [address] Dr. Emilia Snell IG # 0.03 10e3/ul Normal 0.00-0.03 [facility] Comment on above: Performed By: #### T NS #### [facility] [address] [place] [address] Dr. Emilia Snell IG % 0.3 % Normal 0.0-0.5 [facility] Comment on above: Performed By: #### T NS #### [facility] [address] [place] [address] Dr. Emilia Snell LYMPH # 2.5 103/ul Normal 1.2-3.8 [facility] Comment on above: Performed By: #### T NS #### [facility] [address] [place] [address] Dr. Emilia Snell Lymphocytes/100 WBC (Bld) 25.8 % Normal 20.5-60.0 [facility] Comment on above: Performed By: #### T NS #### [facility] [address] [place] [address] Dr. Emilia Snell MANUAL DIFF REQ NO Normal [facility] Comment on above: Performed By: #### T NS #### [facility] [address] [place] [address] Dr. Emilia Snell MCH (RBC) [Entitic mass] 29.8 pg Normal 26.7-34.0 [facility] Comment on above: Performed By: #### T NS #### [facility] [address] [place] [address] Dr. Emilia Snell MCHC (RBC) [Mass/Vol] 33.0 g/dL Normal 29.9-35.2 [facility] Comment on above: Performed By: #### T NS #### [facility] [address] [place] [address] Dr. Emilia Snell MCV (RBC) [Entitic vol] 90.4 fL Normal 81.0-99.0 [facility] Comment on above: Performed By: #### T NS #### [facility] [address] [place] [address] Dr. Emilia Snell MONO # 0.4 103/ul Normal 0.3-0.8 [facility] Comment on above: Performed By: #### T NS #### [facility] [address] [place] [address] Dr. Emilia Snell Monocytes/100 WBC (Bld) 4.2 % Normal 1.7-12.0 [facility] Comment on above: Performed By: #### T NS #### [facility] [address] [place] [address] Dr. Emilia nSell NEUT # 6.5 103/ul Normal 1.4-6.5 [facility] Comment on above: Performed By: #### T NS #### [facility] [address] [place] [address] Dr. Emilia Snell Neutrophils/100 WBC (Bld) 66.7 % Normal 43.0-75.0 [facility] Comment on above: Performed By: #### T NS #### [facility] [address] [place] [address] Dr. Emilia Snell Platelet mean volume (Bld) [Entitic vol] 9.5 fL Normal 9.5-13.5 [facility] Comment on above: Performed By: #### T NS #### [facility] [address] [place] [address] Dr. Emilia Snell PLT 359 103/ul Normal 150-450 [facility] Comment on above: Performed By: #### T NS #### [facility] [address] [place] [address] Dr. Emilia Snell RBC 4.26 106/ul Normal 4.20-5.40 [facility] Comment on above: Performed By: #### T NS #### [facility] [address] [place] [address] Dr. Emilia Snell WBC 9.8 103/ul Normal 4.0-11.0 [facility] Comment on above: Performed By: #### T NS #### [facility] [address] [place] [address] Dr. Emilia Snell CULTURE BLOODon 08-14-2021 Microscopic examination of blood, culture Culture Observations: NO GROWTH AT 5 DAYS. Normal [facility] Comment on above: Performed By: #### G LU1HR #### [facility] [address] [place] [address] Dr. Emilia Snell Microscopic examination of blood, culture Culture Observations: NO GROWTH AT 5 DAYS. Normal [facility] Comment on above: Performed By: #### R HOG #### [facility] [address] [place] [address] Dr. Emilia Snell CULTURE URINEon 08-14-2021 CULTURE URINE Culture Observations : No growth Normal [facility] Comment on above: Performed By: #### R HOG #### [facility] [address] [place] [address] Dr. Emilia Snell Covid-19 PCR ([facility])on 08-05 SARS-CoV-2 (COVID-19) RNA LOUIE+probe Ql (Unsp spec) Not detected Normal NOT DETECTED [facility] Comment on above: Result Comment: When diagnostic testing is negative, the possibility of a false negative should be considered in the context of a patient's recent exposures and the presence of clinical signs and symptoms consistent with SARS-CoV-2. This test is not yet approved or cleared by the [place] FDA. When there are no FDA-approved or cleared tests available, and other criteria are met, FDA can make tests available under an emergency access mechanism called an Emergency Use Authorization (EUA). The EUA for this test is supported by the Griffin of Health and Human Service's declaration that circumstances exist to justify the emergency use of in vitro diagnostics for the detection and/or diagnosis of the virus that causes COVID-19. This EUA will remain in effect for the duration of the COVID-19 declaration justifying emergency of IVDs, unless it is terminated or revoked by the FDA (after which the test may no longer be used). Performed By: #### T NS #### [facility] [address] [place] [address] Dr. Emilia Snell ER URINE PROFILEon 2 Bilirubin Ql (U) Negative Normal NEGATIVE [facility] Comment on above: Performed By: #### C VDTBH #### [facility] [address] [place] [address] Dr. Emilia Snell Clarity (U) CLEAR Normal CLEAR [facility] Comment on above: Performed By: #### C VDTBH #### [facility] [address] [place] [address] Dr. Emilia Snell Color (U) YELLOW Normal YELLOW [facility] Comment on above: Performed By: #### C VDTBH #### [facility] [address] [place] [address] Dr. Emilia Snell ERUAHD A micrscopic examination will be performed if indicated. Normal [facility] Comment on above: Performed By: #### C VDTBH #### [facility] [address] [address] [address] Emilia Snell Glucose Ql (U) Negative Normal NEGATIVE [facility] Comment on above: Performed By: #### C VDTBH #### [facility] [address] [place] [address] Dr. Emilia Snell Hemoglobin Ql (U) TRACE-INTACT Abnormal NEGATIVE [facility] Comment on above: Performed By: #### C VDTBH #### [facility] [address] [place] [address] Dr. Emilia Snell Ketones Ql (U) Negative Normal NEGATIVE [facility] Comment on above: Performed By: #### C VDTBH #### [facility] [address] [place] [address] Dr. Emilia Snell LEUKOCYTES Negative Normal NEGATIVE [facility] Comment on above: Performed By: #### C VDTBH #### [facility] [address] [place] [address] Dr. Emilia nSell Nitrite Ql (U) Negative Normal NEGATIVE [facility] Comment on above: Performed By: #### C VDTBH #### [facility] [address] [place] [address] Dr. Emilia Snell pH (U) 8.0 [pH] Normal 5-9 [facility] Comment on above: Performed By: #### C VDTBH #### [facility] [address] [place] [address] Dr. Emilia Snell SPEC GRAVITY 1.010 Normal 1.005-<=1.025 [facility] Comment on above: Performed By: #### C VDTBH #### [facility] [address] [place] [address] Dr. Emilia Snell UA PROTEIN Negative Normal NEGATIVE/ TRACE [facility] Comment on above: Performed By: #### C VDTBH #### [facility] [address] [place] [address] Dr. Emilia Snell UR MICRO IND INDICATED Normal [facility] Comment on above: Performed By: #### C VDTBH #### [facility] [address] [place] [address] Dr. Emilia Snell Urobilinogen Qn (U) 0.2 {Mick'U}/dL Normal 0.2 - 1. 0 [facility] Comment on above: Performed By: #### C VDTBH #### [facility] [address] [place] [address] Dr. Emilia Snell LACTATE/LACTIC ACIDon 2021 Lactate [Moles/Vol] 0.5 mmol/L Normal 0.4-1.9 [facility] Comment on above: Performed By: #### T NS #### [facility] [address] [place] [address] Dr. Emilia Snell Lactate [Moles/Vol] 0.8 mmol/L Normal 0.4-1.9 [facility] Comment on above: Performed By: #### A BID #### [facility] [address] [place] [address] Dr. Emilia Snell LIPASEon 08-14-2021 Lipase [Catalytic activity/Vol] 68225.0 U/L Critically high 73.0-393.0 [facility] Comment on above: Performed By: #### C VDTBH #### [facility] [address] [place] [address] Dr. Emilia Snell URon 08-14-2021 , QUAL Negative Normal NEGATIVE [facility] Comment on above: Performed By: #### C VDTBH #### [facility] [address] [place] [address] Dr. Emilia Snell PROF 14(COMP METB)on 022 Albumin [Mass/Vol] 3.7 g/dL Normal 3.4-5.0 [facility] Comment on above: Performed By: #### C VDTBH #### [facility] [address] [place] [address] Dr. Emilia Snell Albumin/Globulin [Mass ratio] 0.9 {ratio} Normal [facility] Comment on above: Performed By: #### C VDTBH #### [facility] [address] [address] [address] Emilia Snell ALP [Catalytic activity/Vol] 412 U/L Critically high 46-116 [facility] Comment on above: Performed By: #### C VDTBH #### [facility] [address] [address] [address] Emilia Snell ALT [Catalytic activity/Vol] 664 U/L Critically high 14-59 [facility] Comment on above: Performed By: #### C VDTBH #### [facility] [address] [address] [address] Emilia Snell Anion gap [Moles/Vol] 11.3 mmol/L Normal [facility] Comment on above: Performed By: #### C VDTBH #### [facility] [address] [address] [address] Emilia Snell AST [Catalytic activity/Vol] 485 U/L Critically high 15-37 [facility] Comment on above: Performed By: #### C VDTBH #### [facility] [address] [address] [address] Emilia Snell Bilirubin [Mass/Vol] 0.7 mg/dL Normal 0.2-1.0 [facility] Comment on above: Performed By: #### C VDTBH #### [facility] [address] [place] [address] Dr. Emilia Snell Calcium [Mass/Vol] 8.8 mg/dL Normal 8.5-10.1 [facility] Comment on above: Performed By: #### C VDTBH #### [facility] [address] [address] [address] Emilia Snell Chloride [Moles/Vol] 102 mmol/L Normal 98-107 [facility] Comment on above: Performed By: #### C VDTBH #### [facility] [address] [address] [address] Emilia Snell CO2 [Moles/Vol] 30.2 mmol/L Normal 21.0-32.0 [facility] Comment on above: Performed By: #### C VDTBH #### [facility] [address] [address] [address] Emilia Snell Creatinine [Mass/Vol] 0.89 mg/dL Normal 0.55-1.02 [facility] Comment on above: Performed By: #### C VDTBH #### [facility] [address] [address] [address] Emilia Snell EGFR-AF TURKISH >60 Normal >=60 [facility] Comment on above: Performed By: #### C VDTBH #### [facility] [address] [place] [address] Dr. Emilia Snell EGFR-NON AF TURKISH >60 Normal >=60 [facility] Comment on above: Performed By: #### C VDTBH #### [facility] [address] [place] [address] Dr. Emilia Snell Globulin (S) [Mass/Vol] 3.9 g/dL Normal [facility] Comment on above: Performed By: #### C VDTBH #### [facility] [address] [place] [address] Dr. Emilia Snell Glucose [Mass/Vol] 126 mg/dL Critically high 74-106 [facility] Comment on above: Performed By: #### C VDTBH #### [facility] [address] [place] [address] Dr. Emilia Snell Potassium [Moles/Vol] 3.5 mmol/L Normal 3.5-5.1 [facility] Comment on above: Performed By: #### C VDTBH #### [facility] [address] [place] [address] Dr. Emilia Snell Protein [Mass/Vol] 7.6 g/dL Normal 6.4-8.2 [facility] Comment on above: Performed By: #### C VDTBH #### [facility] [address] [place] [address] Dr. Emilia Snell Sodium [Moles/Vol] 140 mmol/L Normal 136-145 [facility] Comment on above: Performed By: #### C VDTBH #### [facility] [address] [place] [address] Dr. Emilia Snell Urea nitrogen [Mass/Vol] 14.0 mg/dL Normal 7.0-18.0 [facility] Comment on above: Performed By: #### C VDTBH #### [facility] [address] [place] [address] Dr. Emilia Snell Urea nitrogen/Creatinine [Mass ratio] 15.7 mg/mg Normal [facility] Comment on above: Performed By: #### C VDTBH #### [facility] [address] [place] [address] Dr. Emilia Snell URINE MICROSCOPIC ONLYon BACTERIA SMALL Abnormal NONE SEEN [facility] Comment on above: Performed By: #### C VDTBH #### [facility] [address] [place] [address] Dr. Emilia Snell Bacteria identified Cx Nom (U) INDICATED Normal [facility] Comment on above: Performed By: #### C VDTBH #### [facility] [address] [place] [address] Dr. Emilia Snell CAST NONE SEEN Normal NONE SEEN [facility] Comment on above: Performed By: #### C VDTBH #### [facility] [address] [place] [address] Dr. Emilia Snell Crystals LM Nom (Urine sed) NONE SEEN Normal NONE SEEN [facility] Comment on above: Performed By: #### C VDTBH #### [facility] [address] [place] [address] Dr. Emilia Snell Epithelial cells LM Ql (Urine sed) MODERATE Abnormal NONE SEEN /RARE [facility] Comment on above: Performed By: #### C VDTBH #### [facility] [address] [place] [address] Dr. Emilia Snell MUCOUS NONE SEEN Normal NONE SEEN [facility] Comment on above: Performed By: #### C VDTBH #### [facility] [address] [place] [address] Dr. Emilia Snell RBC 0-2 Normal 0-2 [facility] Comment on above: Performed By: #### C VDTBH #### [facility] [address] [place] [address] Dr. Emilia Snell WBC 0-2 Abnormal NONE SEEN [facility] Comment on above: Performed By: #### [facility] #### [facility] [address] [place] [address] Dr. Emilia Snell US SINGLE QUAD RT UPPERon US SINGLE QUAD RT UPPER EXAMINATION: US SINGLE QUAD RT UPPER HISTORY: Pain COMPARISON: No relevant comparison available. FINDINGS: The liver is normal in size, contour and echotexture. No focal hepatic mass. Hepatopedal flow identified may portal vein with velocity of 28 cm/s. The visualized pancreas is normal in appearance The gallbladder is normal in size. The gallbladder wall measures 2.6 mm, normal. Layering echogenicity, likely cholelithiasis and gallbladder sludge. No pericholecystic fluid. Negative sonographic Khan sign. Common bile duct measures 5.3 mm. The right kidney is normal in appearance measuring 11.0 x 4.5 x 5.1 cm. No solid cortical mass or hydronephrosis. The cortex measures 1.2 cm. IMPRESSION: Cholelithiasis and gallbladder sludge without evidence of acute cholecystitis Electronically authenticated by: NELLY GARDINER Date: 2021-08-14 09:37 Normal [facility] ANTIBODY ID PANELon 07-16-19 22 ANTIBODY ID PANEL Antibody ID Anti-D Blood Bank Notes most likely due to Rhogam. Testing performed at [facility] ref lab Normal [facility] Comment on above: Performed By: #### A BID #### [facility] [address] [place] [address] Dr. Emilia Snell CBC AUTO DIFFon 07-12-2021 BASO # 0.0 103/ul Normal 0.0-0.1 [facility] Comment on above: Performed By: #### A BID #### [facility] [address] [place] [address] Dr. Emilia Snell Basophils/100 WBC (Bld) 0.1 % Critically low 0.2-2.0 [facility] Comment on above: Performed By: #### A BID #### [facility] [address] [place] [address] Dr. Emilia Snell EO # 0.0 103/ul Normal 0.0-0.7 [facility] Comment on above: Performed By: #### A BID #### [facility] [address] [place] [address] Dr. Emilia Snell Eosinophils/100 WBC (Bld) 0.1 % Critically low 0.9-7.0 [facility] Comment on above: Performed By: #### A BID #### [facility] [address] [place] [address] Dr. Emilia Snell Erythrocyte distribution width (RBC) [Ratio] 13.7 % Normal 11.0-15.0 [facility] Comment on above: Performed By: #### A BID #### [facility] [address] [place] [address] Dr. Emilia Snell Hematocrit (Bld) [Volume fraction] 25.7 % Critically low 36.0-48.0 [facility] Comment on above: Performed By: #### A BID #### [facility] [address] [place] [address] Dr. Emilia Snell Hemoglobin (Bld) [Mass/Vol] 8.5 g/dL Critically low 12.0-16.0 [facility] Comment on above: Performed By: #### A BID #### [facility] [address] [place] [address] Dr. Emilia Snell IG # 0.05 10e3/ul Critically high 0.00-0.03 [facility] Comment on above: Performed By: #### A BID #### [facility] [address] [place] [address] Dr. Emilia Snell IG % 0.3 % Normal 0.0-0.5 [facility] Comment on above: Performed By: #### A BID #### [facility] [address] [place] [address] Dr. Emilia Snell LYMPH # 2.9 103/ul Normal 1.2-3.8 [facility] Comment on above: Performed By: #### A BID #### [facility] [address] [place] [address] Dr. Emilia Snell Lymphocytes/100 WBC (Bld) 19.9 % Critically low 20.5-60.0 [facility] Comment on above: Performed By: #### A BID #### [facility] [address] [place] [address] Dr. Emilia Snell MANUAL DIFF REQ NO Normal [facility] Comment on above: Performed By: #### A BID #### [facility] [address] [place] [address] Dr. Emilia Snell MCH (RBC) [Entitic mass] 30.7 pg Normal 26.7-34.0 [facility] Comment on above: Performed By: #### A BID #### [facility] [address] [place] [address] Dr. Emilia Snell MCHC (RBC) [Mass/Vol] 33.1 g/dL Normal 29.9-35.2 [facility] Comment on above: Performed By: #### A BID #### [facility] [address] [place] [address] Dr. Emilia Snell MCV (RBC) [Entitic vol] 92.8 fL Normal 81.0-99.0 [facility] Comment on above: Performed By: #### A BID #### [facility] [address] [place] [address] Dr. Emilia Snell MONO # 1.0 103/ul Critically high 0.3-0.8 [facility] Comment on above: Performed By: #### A BID #### [facility] [address] [place] [address] Dr. Emilia Snell Monocytes/100 WBC (Bld) 6.8 % Normal 1.7-12.0 [facility] Comment on above: Performed By: #### A BID #### [facility] [address] [place] [address] Dr. Emilia Snell NEUT # 10.4 103/ul Critically high 1.4-6.5 [facility] Comment on above: Performed By: #### A BID #### [facility] [address] [place] [address] Dr. Emilia Snell Neutrophils/100 WBC (Bld) 72.8 % Normal 43.0-75.0 [facility] Comment on above: Performed By: #### A BID #### [facility] [address] [place] [address] Dr. Emilia Snell Platelet mean volume (Bld) [Entitic vol] 10.2 fL Normal 9.5-13.5 [facility] Comment on above: Performed By: #### A BID #### [facility] [address] [place] [address] Dr. Emilia Snell PLT 199 103/ul Normal 150-450 [facility] Comment on above: Performed By: #### A BID #### [facility] [address] [place] [address] Dr. Emilia Snell RBC 2.77 106/ul Critically low 4.20-5.40 [facility] Comment on above: Performed By: #### A BID #### [facility] [address] [place] [address] Dr. Emilia Snell WBC 14.3 103/ul Critically high 4.0-11.0 [facility] Comment on above: Performed By: #### A BID #### [facility] [address] [place] [address] Dr. Emilia Snell SCREENon 07-12-2021 SCREEN Negative Normal [facility] Comment on above: Performed By: #### F ETSCRN #### [facility] [address] [place] [address] Dr. Emilia Snell RHOGAMon 07-12-2021 RHOGAM Status Information Issued Quantity 1 Product ID Rh Immune Globulin Lot Number [id number] Issue Date/Time [id number] Normal [facility] Comment on above: Performed By: #### R HOG #### [facility] [address] [place] [address] Dr. Emilia Snell CBC AUTO DIFFon 07-11-2021 BASO # 0.0 103/ul Normal 0.0-0.1 [facility] Comment on above: Performed By: #### R HOG #### [facility] [address] [place] [address] Dr. Emilia Snell Basophils/100 WBC (Bld) 0.3 % Normal 0.2-2.0 [facility] Comment on above: Performed By: #### R HOG #### [facility] [address] [place] [address] Dr. Emilia Snell EO # 0.2 103/ul Normal 0.0-0.7 [facility] Comment on above: Performed By: #### R HOG #### [facility] [address] [place] [address] Dr. Emilia Snell Eosinophils/100 WBC (Bld) 2.4 % Normal 0.9-7.0 [facility] Comment on above: Performed By: #### R HOG #### [facility] [address] [place] [address] Dr. Emilia Snell Erythrocyte distribution width (RBC) [Ratio] 13.4 % Normal 11.0-15.0 [facility] Comment on above: Performed By: #### R HOG #### [facility] [address] [place] [address] Dr. Emilia Snell Hematocrit (Bld) [Volume fraction] 34.4 % Critically low 36.0-48.0 [facility] Comment on above: Performed By: #### R HOG #### [facility] [address] [place] [address] Dr. Emilia Snell Hemoglobin (Bld) [Mass/Vol] 12.0 g/dL Normal 12.0-16.0 [facility] Comment on above: Performed By: #### R HOG #### [facility] [address] [place] [address] Dr. Emilia Snell IG # 0.03 10e3/ul Normal 0.00-0.03 [facility] Comment on above: Performed By: #### R HOG #### [facility] [address] [place] [address] Dr. Emilia Snell IG % 0.3 % Normal 0.0-0.5 [facility] Comment on above: Performed By: #### R HOG #### [facility] [address] [place] [address] Dr. Emilia Snell LYMPH # 3.6 103/ul Normal 1.2-3.8 [facility] Comment on above: Performed By: #### R HOG #### [facility] [address] [place] [address] Dr. Emilia Snell Lymphocytes/100 WBC (Bld) 35.6 % Normal 20.5-60.0 [facility] Comment on above: Performed By: #### R HOG #### [facility] [address] [place] [address] Dr. Emilia Snell MANUAL DIFF REQ NO Normal [facility] Comment on above: Performed By: #### R HOG #### [facility] [address] [place] [address] Dr. Emilia Snell MCH (RBC) [Entitic mass] 31.3 pg Normal 26.7-34.0 [facility] Comment on above: Performed By: #### R HOG #### [facility] [address] [place] [address] Dr. Emilia Snell MCHC (RBC) [Mass/Vol] 34.9 g/dL Normal 29.9-35.2 [facility] Comment on above: Performed By: #### R HOG #### [facility] [address] [place] [address] Dr. Emilia Snell MCV (RBC) [Entitic vol] 89.6 fL Normal 81.0-99.0 [facility] Comment on above: Performed By: #### R HOG #### [facility] [address] [place] [address] Dr. Emilia Snell MONO # 0.7 103/ul Normal 0.3-0.8 [facility] Comment on above: Performed By: #### R HOG #### [facility] [address] [place] [address] Dr. Emilia Snell Monocytes/100 WBC (Bld) 6.5 % Normal 1.7-12.0 [facility] Comment on above: Performed By: #### R HOG #### [facility] [address] [place] [address] Dr. Emilia Snell NEUT # 5.5 103/ul Normal 1.4-6.5 [facility] Comment on above: Performed By: #### R HOG #### [facility] [address] [address] [address] Emilia Snell Neutrophils/100 WBC (Bld) 54.9 % Normal 43.0-75.0 [facility] Comment on above: Performed By: #### R HOG #### [facility] [address] [address] [address] Emilia Snell Platelet mean volume (Bld) [Entitic vol] 11.2 fL Normal 9.5-13.5 [facility] Comment on above: Performed By: #### R HOG #### [facility] [address] [address] [address] Emilia Snell PLT 255 103/ul Normal 150-450 [facility] Comment on above: Performed By: #### R HOG #### [facility] [address] [address] [address] Emilia Snell RBC 3.84 106/ul Critically low 4.20-5.40 [facility] Comment on above: Performed By: #### R HOG #### [facility] [address] [address] [address] Emilia Snell WBC 10.1 103/ul Normal 4.0-11.0 [facility] Comment on above: Performed By: #### R HOG #### [facility] [address] [place] [address] Dr. Emilia Snell [facility]on SARS-CoV-2 (COVID-19) RNA LOUIE+probe Ql (Unsp spec) Not detected Normal NOT DETECTED [facility] Comment on above: Result Comment: When diagnostic testing is negative, the possibility of a false negative should be considered in the context of a patient's recent exposures and the presence of clinical signs and symptoms consistent with SARS-CoV-2. This test is not yet approved or cleared by the [place] FDA. When there are no FDA-approved or cleared tests available, and other criteria are met, FDA can make tests available under an emergency access mechanism called an Emergency Use Authorization (EUA). The EUA for this test is supported by the Griffin of Health and Human Service's declaration that circumstances exist to justify the emergency use of in vitro diagnostics for the detection and/or diagnosis of the virus that causes COVID-19. This EUA will remain in effect for the duration of the COVID-19 declaration justifying emergency of IVDs, unless it is terminated or revoked by the FDA (after which the test may no longer be used). Performed By: #### C VDTB #### [facility] [address] [place] [address] Dr. Emilia Snell DRUG SCREEN RAPID (URINE)on 07-11-2021 AMP Negative Normal NEGATIVE [facility] Comment on above: Performed By: #### A BID #### [facility] [address] [place] [address] Dr. Emilia Snell BAR Negative Normal NEGATIVE [facility] Comment on above: Performed By: #### A BID #### [facility] [address] [place] [address] Dr. Emilia Snell BUP Negative Normal NEGATIVE [facility] Comment on above: Performed By: #### A BID #### [facility] [address] [place] [address] Dr. Emilia Snell BZO Negative Normal NEGATIVE [facility] Comment on above: Performed By: #### A BID #### [facility] [address] [place] [address] Dr. Emilia Snell TORRES Negative Normal NEGATIVE [facility] Comment on above: Performed By: #### A BID #### [facility] [address] [place] [address] Dr. Emilia Snell CUT-OFFS SEE BELOW Normal [facility] Comment on above: Result Comment: AMP (Amphetamine): 500ng/mL, BAR (Barbituates): 200 ng/mL, BZO (Benzodiazepines): 150 ng/mL, BUP (Buprenorphine): 10 ng/mL, TORRES (Cocaine): 150 ng/mL, mAMP (Methamphetamine): 500 ng/mL, MTD (Methadone): 200 ng/mL, OPI (Opiates): 100 ng/mL, OXY (Oxycodone): 100 ng/mL, PCP (Phencyclidine): 25 ng/mL, PPX (Propoxyphene): 300 ng/mL, THC (Cannabinoids): 50 ng/mL, TCA (Trycyclic Antidepressants): 300 ng/mL Performed By: #### A BID #### [facility] [address] [place] [address] Dr. Emilia Snell DRUG CUT HEADER DRUG CLASS TEST SYSTEM CUT-OFF CONCENTRATIONS ARE FOLLOWS: Normal [facility] Comment on above: Performed By: #### A BID #### [facility] [address] [place] [address] Dr. Emilia Snell mAMP Negative Normal NEGATIVE [facility] Comment on above: Performed By: #### A BID #### [facility] [address] [place] [address] Dr. Emilia Snell MTD Negative Normal NEGATIVE [facility] Comment on above: Performed By: #### A BID #### [facility] [address] [place] [address] Dr. Emilia Snell OPI Negative Normal NEGATIVE [facility] Comment on above: Performed By: #### A BID #### [facility] [address] [place] [address] Dr. Emilia Snell OXY Negative Normal NEGATIVE [facility] Comment on above: Performed By: #### A BID #### [facility] [address] [place] [address] Dr. Emilia Snell PCP Negative Normal NEGATIVE [facility] Comment on above: Performed By: #### A BID #### [facility] [address] [place] [address] Dr. Emilia Snell PPX Negative Normal NEGATIVE [facility] Comment on above: Performed By: #### A BID #### [facility] [address] [place] [address] Dr. Emilia Snell TCA Negative Normal NEGATIVE [facility] Comment on above: Performed By: #### A BID #### [facility] [address] [place] [address] Dr. Emilia Snell THC Negative Normal NEGATIVE [facility] Comment on above: Performed By: #### A BID #### [facility] [address] [place] [address] Dr. Emilia Snell TYPE AND SCREENon 07-11-2021 TYPE AND SCREEN Negative Normal [facility] Comment on above: Performed By: #### T NS #### [facility] [address] [address] [address] Emilia Snell US PREG BIOPHY W NON STRESSo n 07-06-2021 US PREG BIOPHY W NON STRESS EXAMINATION: US PREG BIOPHY W NON STRESS HISTORY: Polyhydramnios COMPARISON: Ultrasound biophysical 06/29/2021 TECHNIQUE: Ultrasound biophysical profile was performed. FINDINGS: BREATHING MOVEMENTS: 2.0 GROSS BODY MOVEMENTS: 2.0 TONE: 2.0 QUALITATIVE AMNIOTIC FLUID VOLUME: 2.0 PRESENTATION: CEPHALIC HEART RATE: 123.3 bpm bpm. AMNIOTIC FLUID VOLUME: 20.0 cm GESTATIONAL AGE: 38 weeks 2 days CONCLUSION: Total biophysical profile score 8.0. Electronically authenticated by: TEENA GARCIA Date: 2021-07-06 15:21 Normal [facility] US PREG BIOPHY W NON STRESSo n 06-30-2021 US PREG BIOPHY W NON STRESS EXAMINATION: US PREG BIOPHY W NON STRESS HISTORY: Polyhydramnios COMPARISON: No relevant comparison available. TECHNIQUE: Ultrasound biophysical profile was performed in the radiology department. FINDINGS: BREATHING MOVEMENTS: 2.0 GROSS BODY MOVEMENTS: 2.0 TONE: 2.0 QUALITATIVE AMNIOTIC FLUID VOLUME: 2.0 PRESENTATION: CEPHALIC HEART RATE: 128.0 bpm H.B./min AMNIOTIC FLUID VOLUME: 30.7 cm cm GESTATIONAL AGE: 37 weeks 2 days CONCLUSION: Total biophysical profile score: 8.0 Electronically authenticated by: NELLY GARDINER Date: 2021-06-30 07:23 Normal [facility] US PREG GROWTHon 06-30-2021 US PREG GROWTH EXAMINATION: US PREG GROWTH HISTORY: Polyhydramnios COMPARISON: 05/24/2021 FINDINGS: Heart Rate: 128.0 bpm Amniotic Fluid Volume: 30.7 cm, polyhydramnios Number: 1.0 Position: Cephalic presentation, longitudinal lie Maximum Vertical Pocket: 8.0 cm cm 11.9 cm cm 4.2 cm cm 6.6 cm cm BIOMETRY: BPD: 9.5 cm cm; 38 weeks 5 days; 94% HC: 35.3 cmcm; 41 weeks 2 days, 97% AC: 36.5 cm cm; 40 weeks 3 days, greater than 97% FL: 6.8 cm cm; 35 weeks 0 days; 6.1 % % EFW: 3714.6 grams, 8 lbs. 3 oz., 95% FL/AC: 18.7 FL/BPD: 71.8 HC/AC: 1.0 GESTATIONAL AGE: Age by EDC: 37 weeks 2 days AGGIE by EDC: 07/18/2021 Age by US: 38 weeks 6 days AGGIE by US: 07/07/2021 IMPRESSION: Large for gestational age Polyhydramnios Electronically authenticated by: NELLY GARDINER Date: 2021-06-30 07:25 Normal [facility] GROUP B STREP CULTUREon 06-05 S. agalactiae Ag Ql (Unsp spec) Culture Observations: NEGATIVE FOR GROUP B STREPTOCOCCUS. Normal [facility] Comment on above: Performed By: #### R HOG #### [facility] [address] [place] [address] Dr. Emilia Snell US PREG BIOPHY W NON STRESSo n 06-22-2021 US PREG BIOPHY W NON STRESS EXAMINATION: US PREG BIOPHY W NON STRESS HISTORY: Polyhydramnios COMPARISON: Ultrasound biophysical 06/18/2021 TECHNIQUE: Ultrasound biophysical profile was performed. FINDINGS: BREATHING MOVEMENTS: 2.0 GROSS BODY MOVEMENTS: 2.0 TONE: 2.0 QUALITATIVE AMNIOTIC FLUID VOLUME: 2.0 PRESENTATION: CEPHALIC HEART RATE: 134.3 bpm bpm. AMNIOTIC FLUID VOLUME: 28.0 cm GESTATIONAL AGE: 36 weeks 2 days CONCLUSION: 1. Total biophysical profile score 8.0. 2. Polyhydramnios, not significantly changed. Electronically authenticated by: TEENA GARCIA Date: 2021-06-22 16:50 Normal [facility] US PREG BIOPHY W NON STRESSo n 06-19-2021 US PREG BIOPHY W NON STRESS EXAMINATION: US PREG BIOPHY W NON STRESS HISTORY: Reduced movement COMPARISON: No relevant comparison available. TECHNIQUE: Ultrasound biophysical profile was performed in the radiology department. non-reactive stress testing was performed by nursing staff in the birthing center. FINDINGS: BREATHING MOVEMENTS: 2.0 GROSS BODY MOVEMENTS: 2.0 TONE: 2.0 QUALITATIVE AMNIOTIC FLUID VOLUME: 2.0 PRESENTATION: CEPHALIC HEART RATE: 127.4 bpm H.B./min AMNIOTIC FLUID VOLUME: 29.2 cm cm GESTATIONAL AGE: 35 weeks 5 days CONCLUSION: Total biophysical profile score: 8.0 Electronically authenticated by: NELLY GARDINER Date: 2021-06-19 08:14 Normal [facility] US PREG BIOPHY W NON STRESSo n 06-15-2021 US PREG BIOPHY W NON STRESS EXAMINATION: US PREG BIOPHY W NON STRESS HISTORY: Polyhydramnios COMPARISON: No relevant comparison available. TECHNIQUE: Ultrasound biophysical profile was performed. FINDINGS: BREATHING MOVEMENTS: 2.0 GROSS BODY MOVEMENTS: 2.0 TONE: 2.0 QUALITATIVE AMNIOTIC FLUID VOLUME: 2.0 PRESENTATION: CEPHALIC HEART RATE: 135.0 bpm bpm. AMNIOTIC FLUID VOLUME: 31.1 cm (normal range 6.9-27.9 cm) GESTATIONAL AGE: 35 weeks 2 days CONCLUSION: 1. Total biophysical profile score 8.0. 2. Polyhydramnios. Electronically authenticated by: TEENA GARCIA Date: 2021-06-15 16:56 Normal [facility] US PREG BIOPHY W NON STRESSo n 06-09-2021 US PREG BIOPHY W NON STRESS EXAMINATION: US PREG BIOPHY W NON STRESS HISTORY: Polyhydramnios COMPARISON: Ultrasound biophysical 06/01/2021 TECHNIQUE: Ultrasound biophysical profile was performed. FINDINGS: BREATHING MOVEMENTS: 2 GROSS BODY MOVEMENTS: 2 TONE: 2 QUALITATIVE AMNIOTIC FLUID VOLUME: 2 PRESENTATION: CEPHALIC HEART RATE: 154.3 bpm bpm. AMNIOTIC FLUID VOLUME: 28.3 cm GESTATIONAL AGE: 34 weeks 2 days CONCLUSION: Total biophysical profile score 8. Electronically authenticated by: TEENA GARCIA Date: 2021-06-09 08:38 Normal [facility] UA (CLEAN/CATCH) POST OFFICE MANAGER/MICRO I F IND.on 06-05-2021 Bilirubin Ql (U) Negative Normal NEGATIVE [facility] Comment on above: Performed By: #### G LU1HR #### [facility] [address] [place] [address] Dr. Emilia Snell Clarity (U) CLEAR Normal CLEAR [facility] Comment on above: Performed By: #### G LU1HR #### [facility] [address] [place] [address] Dr. Emilia Snell Color (U) YELLOW Normal YELLOW [facility] Comment on above: Performed By: #### G LU1HR #### [facility] [address] [place] [address] Dr. Emilia Snell Glucose Ql (U) Negative Normal NEGATIVE [facility] Comment on above: Performed By: #### G LU1HR #### [facility] [address] [place] [address] Dr. Emilia Snell Hemoglobin Ql (U) Negative Normal NEGATIVE [facility] Comment on above: Performed By: #### G LU1HR #### [facility] [address] [place] [address] Dr. Emilia Snell Ketones Ql (U) TRACE Abnormal NEGATIVE [facility] Comment on above: Performed By: #### G LU1HR #### [facility] [address] [place] [address] Dr. Emilia Snell LEUKOCYTES Negative Normal NEGATIVE [facility] Comment on above: Performed By: #### G LU1HR #### [facility] [address] [place] [address] Dr. Emilia Snell Nitrite Ql (U) Negative Normal NEGATIVE [facility] Comment on above: Performed By: #### G LU1HR #### [facility] [address] [place] [address] Dr. Emilia Snell pH (U) 6.5 [pH] Normal 5-9 [facility] Comment on above: Performed By: #### G LU1HR #### [facility] [address] [place] [address] Dr. Emilia Snell SPEC GRAVITY 1.020 Normal 1.005-<=1.025 [facility] Comment on above: Performed By: #### G LU1HR #### [facility] [address] [place] [address] Dr. Emilia Snell UA PROTEIN Negative Normal NEGATIVE/ TRACE [facility] Comment on above: Performed By: #### G LU1HR #### [facility] [address] [place] [address] Dr. Emilia Snell UR MICRO IND NOT INDICATED Normal [facility] Comment on above: Performed By: #### G LU1HR #### [facility] [address] [place] [address] Dr. Emilia Snell Urobilinogen Qn (U) 0.2 {Mick'U}/dL Normal 0.2 - 1. 0 [facility] Comment on above: Performed By: #### G LU1HR #### [facility] [address] [address] [address] Emilia Snell US PREG BIOPHY W NON STRESSo n 06-02-2021 US PREG BIOPHY W NON STRESS EXAMINATION: US PREG BIOPHY W NON STRESS HISTORY: Polyhydramnios COMPARISON: No relevant comparison available. TECHNIQUE: Ultrasound biophysical profile was performed in the radiology department. FINDINGS: BREATHING MOVEMENTS: 2.0 GROSS BODY MOVEMENTS: 2.0 TONE: 2.0 QUALITATIVE AMNIOTIC FLUID VOLUME: 2.0 PRESENTATION: CEPHALIC HEART RATE: 120.5 bpm H.B./min AMNIOTIC FLUID VOLUME: 26.4 cm cm GESTATIONAL AGE: 33 weeks 2 days CONCLUSION: Total biophysical profile score: 8.0 Electronically authenticated by: NELLY GARDINER Date: 2021-06-02 08:09 Normal [facility] US PREG GROWTHon 06-02-2021 US PREG GROWTH EXAMINATION: US PREG GROWTH HISTORY: Excessive growth affecting management of mother COMPARISON: No relevant comparison available. FINDINGS: Heart Rate: 120.5 bpm Amniotic Fluid Volume: 26.4 cm, polyhydramnios Number: 1.0 Position: Cephalic presentation, longitudinal lie Maximum Vertical Pocket: 6.5 cm cm 4.9 cm cm 10.3 cm cm 4.7 cm cm BIOMETRY: BPD: 8.9 cm cm; 35 weeks 6 days; 97% HC: 33.2 cmcm; 37 weeks 6 days, greater than 97% AC: 31.3 cm cm; 35 weeks 2 days, 94% FL: 6.4 cm cm; 33 weeks 0 days; 30.6 % % EFW: 2558.3 grams, 5 lbs. 10 oz., 88% FL/AC: 20.4 FL/BPD: 72.0 HC/AC: 1.1 GESTATIONAL AGE: Age by EDC: 33 weeks 2 days AGGIE by EDC: 07/18/2021 Age by US: 35 weeks 4 days AGGIE by US: 07/02/2021 IMPRESSION: BPD and head circumference greater then 95th percentile Estimated weight 88 percentile Polyhydramnios Electronically authenticated by: NELLY GARDINER Date: 2021-06-02 08:11 Normal [facility] US PREG BIOPHY W NON STRESSo n 05-26-2021 US PREG BIOPHY W NON STRESS EXAMINATION: US PREG BIOPHY W NON STRESS HISTORY: Polyhydramnios COMPARISON: No relevant comparison available. TECHNIQUE: Ultrasound biophysical profile was performed in the radiology department. FINDINGS: BREATHING MOVEMENTS: 2.0 GROSS BODY MOVEMENTS: 2.0 TONE: 2.0 QUALITATIVE AMNIOTIC FLUID VOLUME: 2.0 PRESENTATION: CEPHALIC HEART RATE: 131.1 bpm H.B./min AMNIOTIC FLUID VOLUME: 23.7 cm cm GESTATIONAL AGE: 32 weeks 2 days CONCLUSION: Total biophysical profile score: 8.0 Electronically authenticated by: NELLY GARDINER Date: 2021-05-26 07:24 Normal [facility] US PREG GROWTHon 05-06-2021 US PREG GROWTH EXAMINATION: US PREG GROWTH HISTORY: Large for gestation age fetus COMPARISON: No relevant comparison available. FINDINGS: Heart Rate: 135 Number: 1.0 Position: Cephalic Amniotic Fluid Volume: 27.8 cm (greater than 95th percentile) Maximum Vertical Pocket: 10.2 cm BIOMETRY: BPD: 7.9 cm cm; 31 weeks 5 days HC: 29.7 cmcm; 32 weeks 5 days AC: 26.9 cm cm; 31 weeks 0 days FL: 5.9 cm cm; 30 weeks 4 days EFW: 1703 g (29% by ultrasound, 91% by expected) FL/AC: 0.550271 FL/BPD: 0.409367 HC/AC: 1.310763 GESTATIONAL AGE: Age by EDC: 29 weeks, 3 days AGGIE by EDC: 07/18/2021 Age by US: 31 weeks, 3 days AGGIE by US: 07/04/2021 IMPRESSION: 1. Single live intrauterine with growth detailed above. 2. Polyhydramnios. Dr. Rodriguez notified of findings by pullman clerk at time of imaging. Electronically authenticated by: TEENA GARCIA Date: 2021-05-06 07:31 Normal [facility] RHOGAMon 04-28-2021 RHOGAM Status Information Issued Quantity 1 Product ID Rh Immune Globulin Lot Number [id number] Issue Date/Time [id number] Normal [facility] Comment on above: Performed By: #### G LU1HR #### [facility] [address] [place] [address] Dr. Emilia Snell GTT 3 HR PREGon 04-27-2021 Glucose [Mass/Vol] 79 mg/dL Normal 74-106 [facility] Comment on above: Performed By: #### R HOG #### [facility] [address] [place] [address] Dr. Emilia Snell Glucose [Mass/Vol] 133 mg/dL Normal [facility] Comment on above: Performed By: #### R HOG #### [facility] [address] [place] [address] Dr. Emilia Snell Glucose [Mass/Vol] 113 mg/dL Normal [facility] Comment on above: Performed By: #### R HOG #### [facility] [address] [place] [address] Dr. Emilia Snell Glucose [Mass/Vol] 90 mg/dL Normal [facility] Comment on above: Performed By: #### R HOG #### [facility] [address] [place] [address] Dr. Emilia Snell TYPE AND SCREENon 04-27-2021 TYPE AND SCREEN Negative Normal [facility] Comment on above: Performed By: #### T NS #### [facility] [address] [place] [address] Dr. Emilia Snell CBC AUTO DIFFon 04-11-2021 BASO # 0.0 103/ul Normal 0.0-0.1 [facility] Comment on above: Performed By: #### A BID #### [facility] [address] [place] [address] Dr. Emilia Snell Basophils/100 WBC (Bld) 0.4 % Normal 0.2-2.0 [facility] Comment on above: Performed By: #### A BID #### [facility] [address] [place] [address] Dr. Emilia Snell EO # 0.5 103/ul Normal 0.0-0.7 [facility] Comment on above: Performed By: #### A BID #### [facility] [address] [place] [address] Dr. Emilia Snell Eosinophils/100 WBC (Bld) 5.2 % Normal 0.9-7.0 [facility] Comment on above: Performed By: #### A BID #### [facility] [address] [place] [address] Dr. Emilia Snell Erythrocyte distribution width (RBC) [Ratio] 12.7 % Normal 11.0-15.0 [facility] Comment on above: Performed By: #### A BID #### [facility] [address] [place] [address] Dr. Emilia Snell Hematocrit (Bld) [Volume fraction] 34.1 % Critically low 36.0-48.0 [facility] Comment on above: Performed By: #### A BID #### [facility] [address] [place] [address] Dr. Emilia Snell Hemoglobin (Bld) [Mass/Vol] 11.8 g/dL Critically low 12.0-16.0 [facility] Comment on above: Performed By: #### A BID #### [facility] [address] [place] [address] Dr. Emilia Snell IG # 0.04 10e3/ul Critically high 0.00-0.03 [facility] Comment on above: Performed By: #### A BID #### [facility] [address] [place] [address] Dr. Emilia Snell IG % 0.4 % Normal 0.0-0.5 [facility] Comment on above: Performed By: #### A BID #### [facility] [address] [place] [address] Dr. Emilia Snell LYMPH # 2.3 103/ul Normal 1.2-3.8 [facility] Comment on above: Performed By: #### A BID #### [facility] [address] [place] [address] Dr. Emilia Snell Lymphocytes/100 WBC (Bld) 21.8 % Normal 20.5-60.0 [facility] Comment on above: Performed By: #### A BID #### [facility] [address] [place] [address] Dr. Emilia Snell MANUAL DIFF REQ NO Normal [facility] Comment on above: Performed By: #### A BID #### [facility] [address] [place] [address] Dr. Emilia Snell MCH (RBC) [Entitic mass] 31.7 pg Normal 26.7-34.0 [facility] Comment on above: Performed By: #### A BID #### [facility] [address] [place] [address] Dr. Emilia Snell MCHC (RBC) [Mass/Vol] 34.6 g/dL Normal 29.9-35.2 [facility] Comment on above: Performed By: #### A BID #### [facility] [address] [place] [address] Dr. Emilia Snell MCV (RBC) [Entitic vol] 91.7 fL Normal 81.0-99.0 [facility] Comment on above: Performed By: #### A BID #### [facility] [address] [place] [address] Dr. Emilia Snell MONO # 0.4 103/ul Normal 0.3-0.8 [facility] Comment on above: Performed By: #### A BID #### [facility] [address] [place] [address] Dr. Emilia Snell Monocytes/100 WBC (Bld) 3.4 % Normal 1.7-12.0 [facility] Comment on above: Performed By: #### A BID #### [facility] [address] [place] [address] Dr. Emilia Snell NEUT # 7.2 103/ul Critically high 1.4-6.5 [facility] Comment on above: Performed By: #### A BID #### [facility] [address] [place] [address] Dr. Emilia Snell Neutrophils/100 WBC (Bld) 68.8 % Normal 43.0-75.0 [facility] Comment on above: Performed By: #### A BID #### [facility] [address] [place] [address] Dr. Emilia Snell Platelet mean volume (Bld) [Entitic vol] 9.3 fL Critically low 9.5-13.5 [facility] Comment on above: Performed By: #### A BID #### [facility] [address] [place] [address] Dr. Emilia Snell PLT 287 103/ul Normal 150-450 [facility] Comment on above: Performed By: #### A BID #### [facility] [address] [place] [address] Dr. Emilia Snell RBC 3.72 106/ul Critically low 4.20-5.40 [facility] Comment on above: Performed By: #### A BID #### [facility] [address] [place] [address] Dr. Emilia Snell WBC 10.5 103/ul Normal 4.0-11.0 [facility] Comment on above: Performed By: #### A BID #### [facility] [address] [place] [address] Dr. Emilia Snell GLUCOSE - 1HRon 04-11-2021 Glucose [Mass/Vol] 149 mg/dL Critically high 74-106 [facility] Comment on above: Performed By: #### G LU1HR #### [facility] [address] [place] [address] Dr. Emilia Snell US PREG GROWTHon 04-07-2021 US PREG GROWTH EXAMINATION: US PREG GROWTH HISTORY: condition affecting obstetrical care of mother COMPARISON: No relevant comparison available. FINDINGS: Heart Rate: 137 Amniotic Fluid Volume: 26.1 cm , polyhydramnios Number: 1.0 Position: Cephalic presentation, longitudinal lie Maximum Vertical Pocket: 7.1 cm cm 6.4 cm cm 5.8 cm cm 6.8 cm cm BIOMETRY: BPD: 6.8 cm cm; 27 weeks 2 days; HC: 24.9 cmcm; 27 weeks 0 days AC: 22.2 cm cm; 26 weeks 4 days FL: 4.9 cm cm; 26 weeks 2 days; EFW: 2 lbs. 2 oz., 87% by expected EDC, 34% by ultrasound FL/AC: 0.839976 FL/BPD: 0.142784 HC/AC: 1.440268 GESTATIONAL AGE: Age by EDC: 25 weeks 3 days AGGIE by EDC: 07/18/2021 Age by US: 26 weeks 5 days AGGIE by US: 07/09/2021 Other: Single echogenic cardiac focus, poorly visualized IMPRESSION: Single echogenic cardiac focus, continued surveillance recommended Polyhydramnios however active fetus makes this value inaccurate Normal interval growth Electronically authenticated by: NELLY GARDINER Date: 2021-04-07 13:35 Normal [facility] US PREG PLACENTAon US PREG PLACENTA EXAMINATION: US PREG PLACENTA HISTORY: Low lying placenta COMPARISON: No relevant comparison available. FINDINGS: The placenta is posterior in location. No intraplacental or retroplacental echogenic abnormality. The placental edge is 7.3 cm from the cervical os IMPRESSION: Placental edge is now 7.3 cm from the internal cervical os Electronically authenticated by: NELLY GARDINER Date: 2021-04-07 13:32 Normal [facility] US PREG ANATOMY SINGLEon US PREG ANATOMY SINGLE EXAMINATION: US PREG ANATOMY SINGLE HISTORY: screening COMPARISON: No relevant comparison available. TECHNIQUE: Transabdominal sonographic examination was performed for obstetrical and evaluation. FINDINGS: Number: 1 Heart Rate: 145.2 bpm H.B. /min Amniotic Fluid Volume: Subjectively normal Placental Location: Posterior, the placental edge is 3 cm from the cervical os. Grade 0. position: Cephalic presentation, longitudinal lie Cervix Length: 4.3 cm, closed Normal structures: Cerebellum. Choroid plexus. Cisterna magna. Lateral cerebral ventricles. Orbits. Midline falx. Hard palate. 4-chamber heart. RVOT. LVOT. Stomach. Kidneys. Bladder. Umbilical cord insertion into abdomen. 3 vessel cord. Cervical spine. Thoracic spine. Lumbar spine. Sacral spine. Right upper extremity. Left upper extremity. Right lower extremity. Left lower extremity. Suboptimally seen: None. Abnormalities/Other: Single echogenic cardiac focus left ventricle BIOMETRY: BPD: 5.1 cm 21 weeks 3 days , 87% HC: 18.9 cm 21 weeks 2 days, 81% AC: 16.2 cm 21 weeks 2 days, 76% FL: 3.3 cm 20 weeks 3 days, 49% EFW:389.4 grams; 14 ounces, 82% FL/AC: 20.6 FL/BPD: 65.9 HC/AC: 1.2 GESTATIONAL AGE: Age by EDC: 20 weeks 2 days AGGIE by EDC: 07/18/2021 Age by current US: 21 weeks 1 days AGGIE by current US: 07/12/2021 IMPRESSION: Single echogenic cardiac focus. Follow-up ultrasound in 4-8 weeks recommended Low lying placenta *Reference: [employer] Practice Guideline for the performance of Obstetric Ultrasound Examinations, December 05, 2006. Electronically authenticated by: NELLY GARDINER Date: 2021-03-02 12:20 Normal [facility] CULTURE URINEon 02-11-2021 CULTURE URINE Culture Observations : GR STREP FAXED ER/NOTFD ESA@1015/02/11/21/R K Isolate 1 Streptococcus agalactiae 20,000 cfu/ml of ORGANISM 1 Streptococcus agalactiae ANTIBIOTIC M.I.C RX STATUS Benzylpenicillin <=0.06 S F Ampicillin <=0.25 S F Cefotaxime <=0.12 S F Ceftriaxone <=0.12 S F Levofloxacin 0.5 S F Inducible Clindamycin Resistance Neg NEG F Erythromycin >=8 R F Clindamycin >=1 R F Linezolid <=2 S F Vancomycin 0.5 S F Tetracycline >=16 R F Normal [facility] Comment on above: Performed By: #### [place] [facility] [place] #### [facility] [address] [place] [address] Dr. Emilia Snell US SINGLE QUAD RT UPPERon US SINGLE QUAD RT UPPER EXAM: US SINGLE QUAD RT UPPER HISTORY: . Right upper quadrant pain . COMPARISON: None. TECHNIQUE: Grayscale and color imaging was performed FINDINGS: The pancreas appears normal. Scanning of the liver demonstrates a normal-appearing liver. No focal masses or biliary dilatation is noted. Color-flow is noted in the portal and hepatic veins. Scanning of the gallbladder demonstrates a small amount of sludge within the gallbladder. No gallstones are noted. No gallbladder wall thickening is noted. Patient had no pain upon scanning over the gallbladder. Common bile duct is normal measuring 3.6 mm. Right kidney measures 11.2 x 5.5 x 4.6 cm. Color-flow is noted. No solid renal cortical masses or hydronephrosis was noted. No fluid is noted in the right upper quadrant. IMPRESSION: 1. Sludge within the gallbladder. No gallstones. No gallbladder wall thickening. 2. The remainder the right upper quadrant was unremarkable. Electronically authenticated by: NELLY KONG Date: 2021-02-09 07:59 Normal [facility] AMYLASEon 02-08-2021 Amylase [Catalytic activity/Vol] 61 U/L Normal 31-110 [facility] Comment on above: Performed By: #### C VDTB #### [facility] [address] [place] [address] Dr. Emilia Snell CBC AUTO DIFFon 02-08-2021 BASO # 0.0 103/ul Normal 0.0-0.1 [facility] Comment on above: Performed By: #### T NS #### [facility] [address] [place] [address] Dr. Emilia Snell Basophils/100 WBC (Bld) 0.3 % Normal 0.2-2.0 [facility] Comment on above: Performed By: #### T NS #### [facility] [address] [place] [address] Dr. Emilia Snell EO # 0.5 103/ul Normal 0.0-0.7 [facility] Comment on above: Performed By: #### T NS #### [facility] [address] [place] [address] Dr. Emilia Snell Eosinophils/100 WBC (Bld) 2.9 % Normal 0.9-7.0 [facility] Comment on above: Performed By: #### T NS #### [facility] [address] [place] [address] Dr. Emilia Snell Erythrocyte distribution width (RBC) [Ratio] 13.0 % Normal 11.0-15.0 [facility] Comment on above: Performed By: #### T NS #### [facility] [address] [place] [address] Dr. Emilia Snell Hematocrit (Bld) [Volume fraction] 36.6 % Normal 36.0-48.0 [facility] Comment on above: Performed By: #### T NS #### [facility] [address] [place] [address] Dr. Emilia Snell Hemoglobin (Bld) [Mass/Vol] 12.1 g/dL Normal 12.0-16.0 [facility] Comment on above: Performed By: #### T NS #### [facility] [address] [place] [address] Dr. Emilia Snell IG # 0.05 10e3/ul Critically high 0.00-0.03 [facility] Comment on above: Performed By: #### T NS #### [facility] [address] [place] [address] Dr. Emilia Snell IG % 0.3 % Normal 0.0-0.5 [facility] Comment on above: Performed By: #### T NS #### [facility] [address] [place] [address] Dr. Emilia Snell LYMPH # 3.3 103/ul Normal 1.2-3.8 [facility] Comment on above: Performed By: #### T NS #### [facility] [address] [place] [address] Dr. Emilia Snell Lymphocytes/100 WBC (Bld) 21.2 % Normal 20.5-60.0 [facility] Comment on above: Performed By: #### T NS #### [facility] [address] [place] [address] Dr. Emilia Snell MANUAL DIFF REQ NO Normal [facility] Comment on above: Performed By: #### T NS #### [facility] [address] [place] [address] Dr. Emilia Snell MCH (RBC) [Entitic mass] 30.3 pg Normal 26.7-34.0 [facility] Comment on above: Performed By: #### T NS #### [facility] [address] [place] [address] Dr. Emilia Snell MCHC (RBC) [Mass/Vol] 33.1 g/dL Normal 29.9-35.2 [facility] Comment on above: Performed By: #### T NS #### [facility] [address] [address] [address] Emilia Snell MCV (RBC) [Entitic vol] 91.5 fL Normal 81.0-99.0 [facility] Comment on above: Performed By: #### T NS #### [facility] [address] [address] [address] Emilia Snell MONO # 0.7 103/ul Normal 0.3-0.8 [facility] Comment on above: Performed By: #### T NS #### [facility] [address] [address] [address] Emilia Snell Monocytes/100 WBC (Bld) 4.4 % Normal 1.7-12.0 [facility] Comment on above: Performed By: #### T NS #### [facility] [address] [address] [address] Emilia Snell NEUT # 10.9 103/ul Critically high 1.4-6.5 [facility] Comment on above: Performed By: #### T NS #### [facility] [address] [place] [address] Dr. Emilia Snell Neutrophils/100 WBC (Bld) 70.9 % Normal 43.0-75.0 [facility] Comment on above: Performed By: #### T NS #### [facility] [address] [address] [address] Emilia Snell Platelet mean volume (Bld) [Entitic vol] 9.5 fL Normal 9.5-13.5 [facility] Comment on above: Performed By: #### T NS #### [facility] [address] [address] [address] Emilia Snell PLT 315 103/ul Normal 150-450 [facility] Comment on above: Performed By: #### T NS #### [facility] [address] [place] [address] Dr. Emilia Snell RBC 4.00 106/ul Critically low 4.20-5.40 [facility] Comment on above: Performed By: #### T NS #### [facility] [address] [address] [address] Emilia Snell WBC 15.4 103/ul Critically high 4.0-11.0 [facility] Comment on above: Performed By: #### T NS #### [facility] [address] [address] [address] Emilia Snell ER URINE PROFILEon 1 Bilirubin Ql (U) Negative Normal NEGATIVE [facility] Comment on above: Performed By: #### T NS #### [facility] [address] [place] [address] Dr. Emilia Snell Clarity (U) CLEAR Normal CLEAR [facility] Comment on above: Performed By: #### T NS #### [facility] [address] [place] [address] Dr. Emilia Snell Color (U) BROWN Abnormal YELLOW [facility] Comment on above: Performed By: #### T NS #### [facility] [address] [place] [address] Dr. Emilia BADILLO A micrscopic examination will be performed if indicated. Normal [facility] Comment on above: Performed By: #### T NS #### [facility] [address] [address] [address] Emilia Snell Glucose Ql (U) Negative Normal NEGATIVE [facility] Comment on above: Performed By: #### T NS #### [facility] [address] [address] [address] Emilia Snell Hemoglobin Ql (U) Negative Normal NEGATIVE [facility] Comment on above: Performed By: #### T NS #### [facility] [address] [address] [address] Emilia Snell Ketones Ql (U) Negative Normal NEGATIVE [facility] Comment on above: Performed By: #### T NS #### [facility] [address] [place] [address] Dr. Emilia Snell LEUKOCYTES TRACE Abnormal NEGATIVE [facility] Comment on above: Performed By: #### T NS #### [facility] [address] [place] [address] Dr. Emilia Snell Nitrite Ql (U) Negative Normal NEGATIVE [facility] Comment on above: Performed By: #### T NS #### [facility] [address] [place] [address] Dr. Emilia Snell pH (U) 5.5 [pH] Normal 5-9 [facility] Comment on above: Performed By: #### T NS #### [facility] [address] [place] [address] Dr. Emilia Snell SPEC GRAVITY 1.020 Normal 1.005-<=1.025 [facility] Comment on above: Performed By: #### T NS #### [facility] [address] [place] [address] Dr. Emilia Snell UA PROTEIN Negative Normal NEGATIVE/ TRACE [facility] Comment on above: Performed By: #### T NS #### [facility] [address] [place] [address] Dr. Emilia Snell UR MICRO IND INDICATED Normal [facility] Comment on above: Performed By: #### T NS #### [facility] [address] [place] [address] Dr. Emilia Snell Urobilinogen Qn (U) 0.2 {Mick'U}/dL Normal 0.2 - 1. 0 [facility] Comment on above: Performed By: #### T NS #### [facility] [address] [place] [address] Dr. Emilia Snell LIPASEon 02-08-2021 Lipase [Catalytic activity/Vol] 82.0 U/L Normal 23.0-300.0 [facility] Comment on above: Performed By: #### C VDTBH #### [facility] [address] [place] [address] Dr. Emilia Snell LIVER PROFILEon 02-08-2021 Albumin [Mass/Vol] 3.2 g/dL Critically low 3.5-5.0 [facility] Comment on above: Performed By: #### C VDTBH #### [facility] [address] [place] [address] Dr. Emilia Snell Albumin/Globulin [Mass ratio] 0.8 {ratio} Normal [facility] Comment on above: Performed By: #### C VDTBH #### [facility] [address] [place] [address] Dr. Emilia Snell ALP [Catalytic activity/Vol] 75 U/L Normal 38-126 [facility] Comment on above: Performed By: #### C VDTBH #### [facility] [address] [place] [address] Dr. Emilia Snell ALT [Catalytic activity/Vol] 19 U/L Normal 9-52 [facility] Comment on above: Performed By: #### C VDTBH #### [facility] [address] [place] [address] Dr. Emilia Snell AST [Catalytic activity/Vol] 14 U/L Normal 14-36 [facility] Comment on above: Performed By: #### C VDTBH #### [facility] [address] [place] [address] Dr. Emilia Snell BILI, CONJUGATED 0.1 mg/dL Normal 0.0-0.3 [facility] Comment on above: Performed By: #### C VDTBH #### [facility] [address] [place] [address] Dr. Emilia Snell Bilirubin [Mass/Vol] 0.2 mg/dL Normal 0.2-1.3 [facility] Comment on above: Performed By: #### C VDTBH #### [facility] [address] [place] [address] Dr. Emilia Snell Globulin (S) [Mass/Vol] 4.1 g/dL Normal [facility] Comment on above: Performed By: #### C VDTBH #### [facility] [address] [place] [address] Dr. Emilia Snell Protein [Mass/Vol] 7.3 g/dL Normal 6.1-8.2 [facility] Comment on above: Performed By: #### C VDTBH #### [facility] [address] [place] [address] Dr. Emilia Snell PROF CHEM 8 (BAS METB)on Anion gap [Moles/Vol] 12.8 mmol/L Normal [facility] Comment on above: Performed By: #### G LU1HR #### [facility] [address] [place] [address] Dr. Emilia Snell Calcium [Mass/Vol] 8.7 mg/dL Normal 8.4-10.2 [facility] Comment on above: Performed By: #### G LU1HR #### [facility] [address] [place] [address] Dr. Emilia Snell Chloride [Moles/Vol] 102 mmol/L Normal 98-107 [facility] Comment on above: Performed By: #### G LU1HR #### [facility] [address] [place] [address] Dr. Emilia Snell CO2 [Moles/Vol] 24.7 mmol/L Normal 22.0-30.0 [facility] Comment on above: Performed By: #### G LU1HR #### [facility] [address] [place] [address] Dr. Emilia Snell Creatinine [Mass/Vol] 0.65 mg/dL Normal 0.52-1.04 [facility] Comment on above: Performed By: #### G LU1HR #### [facility] [address] [place] [address] Dr. Emilia Snell EGFR-AF TURKISH >60 Normal >=60 [facility] Comment on above: Performed By: #### G LU1HR #### [facility] [address] [place] [address] Dr. Emilia Snell EGFR-NON AF TURKISH >60 Normal >=60 [facility] Comment on above: Performed By: #### G LU1HR #### [facility] [address] [place] [address] Dr. Emilia Snell Glucose [Mass/Vol] 90 mg/dL Normal 74-106 [facility] Comment on above: Performed By: #### G LU1HR #### [facility] [address] [place] [address] Dr. Emilia Snell Potassium [Moles/Vol] 3.5 mmol/L Normal 3.4-5.0 [facility] Comment on above: Performed By: #### G LU1HR #### [facility] [address] [place] [address] Dr. Emilia Snell Sodium [Moles/Vol] 136 mmol/L Critically low 137-145 [facility] Comment on above: Performed By: #### G LU1HR #### [facility] [address] [place] [address] Dr. Emilia Snell Urea nitrogen [Mass/Vol] 7.0 mg/dL Normal 7.0-17.0 [facility] Comment on above: Performed By: #### G LU1HR #### [facility] [address] [place] [address] Dr. Emilia Snell Urea nitrogen/Creatinine [Mass ratio] 10.8 mg/mg Normal [facility] Comment on above: Performed By: #### G LU1HR #### [facility] [address] [place] [address] Dr. Emilia Snell URINE MICROSCOPIC ONLYon AMORPHOUS CRYSTALS FEW Normal [facility] Comment on above: Performed By: #### T NS #### [facility] [address] [place] [address] Dr. Emilia Snell BACTERIA SMALL Abnormal NONE SEEN [facility] Comment on above: Performed By: #### T NS #### [facility] [address] [place] [address] Dr. Emilia Snell Bacteria identified Cx Nom (U) INDICATED Normal [facility] Comment on above: Performed By: #### T NS #### [facility] [address] [place] [address] Dr. Emilia Snell CAST NONE SEEN Normal NONE SEEN [facility] Comment on above: Performed By: #### T NS #### [facility] [address] [place] [address] Dr. Emilia Snell Crystals LM Nom (Urine sed) SEEN Abnormal NONE SEEN [facility] Comment on above: Performed By: #### T NS #### [facility] [address] [place] [address] Dr. Emilia Snell Epithelial cells LM Ql (Urine sed) MODERATE Abnormal NONE SEEN /RARE [facility] Comment on above: Performed By: #### T NS #### [facility] [address] [place] [address] Dr. Emilia Snell MUCOUS SMALL Abnormal NONE SEEN [facility] Comment on above: Performed By: #### T NS #### [facility] [address] [place] [address] Dr. Emilia Snell RBC 0-2 Normal 0-2 [facility] Comment on above: Performed By: #### T NS #### [facility] [address] [place] [address] Dr. Emilia Snell WBC 2-5 Abnormal NONE SEEN [facility] Comment on above: Performed By: #### T NS #### [facility] [address] [place] [address] Dr. Emilia Snell PAP ACOG PANEL 2: 21 to 29on 01-28-2021 . . Normal [facility] Comment on above: Performed By: #### A BID #### [facility] [address] [place] [address] Dr. Emilia Snell Age Gdln ACOG Testing - Normal [facility] Comment on above: Performed By: #### A BID #### [facility] [address] [place] [address] Dr. Emilia Snell DIAGNOSIS: Comment Normal [facility] Comment on above: Result Comment: NEGA TIVE FOR INTRAEPITHELIAL LESION OR MALIGNANCY. Performed By: #### A BID #### [facility] [address] [place] [address] Dr. Emilia Snell Methodology: Comment Normal [facility] Comment on above: Result Comment: This liquid based ThinPrep(R) pap test was screened with the use of an image guided system. Performed By: #### A BID #### [facility] [address] [place] [address] Dr. Emilia Snell Note: Comment Normal [facility] Comment on above: Result Comment: The Pap smear is a screening test designed to aid in the detection of premalignant and malignant conditions of the uterine cervix. It is not a diagnostic procedure and should not be used as the sole means of detecting cervical cancer. Both false-positive and false-negative reports do occur. . Performed By: #### A BID #### [facility] [address] [place] [address] Dr. Emilia Snell Performed by: Comment Normal [facility] Comment on above: Result Comment: Marlys Menchaca, Sports Commentator (ASCP) Performed By: #### A BID #### [facility] [address] [place] [address] Dr. Emilia Snell Reflex Criteria: Comment Normal [facility] Comment on above: Result Comment: The HPV DNA reflex criteria were not met with this specimen result therefore, no HPV testing was performed. . Performed By: #### A BID #### [facility] [address] [place] [address] Dr. Emilia Snell Specimen adequacy: Comment Normal [facility] Comment on above: Result Comment: Sati sfactory for evaluation. No endocervical component is identified. Performed By: #### A BID #### [facility] [address] [place] [address] Dr. Emilia Snell CHLAMYDIA/GONOCOCCUS LOUIE (SW AB/URINE/PAPon 01-23-2021 Chlamydia trachomatis, LOUIE Negative Normal Negative [facility] Comment on above: Performed By: #### T NS #### [facility] [address] [place] [address] Dr. Emilia Snell Neisseria gonorrhoeae, LOUIE Negative Normal Negative [facility] Comment on above: Performed By: #### T NS #### [facility] [address] [place] [address] Dr. Emilia Snell VAGINITIS/VAGINOSIS DNA PROB Shawn 01-23-2021 Eliana species Negative Normal Negative [facility] Comment on above: Performed By: #### C VDTBH #### [facility] [address] [place] [address] Dr. Emilia Snell Gardnerella vaginalis Negative Normal Negative [facility] Comment on above: Performed By: #### C VDTBH #### [facility] [address] [place] [address] Dr. Emilia Snell Trichomonas vaginalis Negative Normal Negative [facility] Comment on above: Performed By: #### C VDTBH #### [facility] [address] [place] [address] Dr. Emilia Snell HEP B SURFACE ANTIGEN SCREEN on 12-28-2020 HBsAg Screen Negative Normal Negative [facility] Comment on above: Performed By: #### T NS #### [facility] [address] [place] [address] Dr. Emilia Snell HEPATITIS C VIRUS AB W/ REFL EX QUANTon 12-28-2020 HCV AB 0.1 s/co ratio Normal 0.0-0.9 [facility] Comment on above: Performed By: #### R HOG #### [facility] [address] [place] [address] Dr. Emilia Snell Interpretation: Comment Normal [facility] Comment on above: Result Comment: Nega tive Not infected with HCV, unless recent infection is suspected or other evidence exists to indicate HCV infection. Performed By: #### R HOG #### [facility] [address] [place] [address] Dr. Emilia Snell HIV 1 AND 2 WITH REFLEXon HIV Screen 4th Generation wRfx Non-Reactive Normal Non Reactive [facility] Comment on above: Performed By: #### G LU1HR #### [facility] [address] [place] [address] Dr. mEilia Snell RPR QUANTon 12-28-2020 Rapid Plasma Reagin, Quant Non-Reactive Normal NonRea<1:1 [facility] Comment on above: Performed By: #### G LU1HR #### [facility] [address] [place] [address] Dr. Emilia Snell RUBELLA AB IGGon 12-28-2020 Rubella Antibodies, IgG 8.24 index Normal Immune >0.99 [facility] Comment on above: Result Comment: Non- immune <0.90 Equivocal 0.90 - 0.99 Immune >0.99 Performed By: #### T NS #### [facility] [address] [place] [address] Dr. Emilia Snell CBC AUTO DIFFon 12-27-2020 BASO # 0.1 103/ul Normal 0.0-0.1 [facility] Comment on above: Performed By: #### C BC #### [facility] [address] [place] [address] Dr. Emilia Snell Basophils/100 WBC (Bld) 0.5 % Normal 0.2-2.0 [facility] Comment on above: Performed By: #### C BC #### [facility] [address] [place] [address] Dr. Emilia Snell EO # 0.3 103/ul Normal 0.0-0.7 [facility] Comment on above: Performed By: #### C BC #### [facility] [address] [place] [address] Dr. Emilia Snell Eosinophils/100 WBC (Bld) 2.9 % Normal 0.9-7.0 [facility] Comment on above: Performed By: #### C BC #### [facility] [address] [place] [address] Dr. Emilia Snell Erythrocyte distribution width (RBC) [Ratio] 12.9 % Normal 11.0-15.0 [facility] Comment on above: Performed By: #### C BC #### [facility] [address] [place] [address] Dr. Emilia Snell Hematocrit (Bld) [Volume fraction] 37.3 % Normal 36.0-48.0 [facility] Comment on above: Performed By: #### C BC #### [facility] [address] [place] [address] Dr. Emilia Snell Hemoglobin (Bld) [Mass/Vol] 12.7 g/dL Normal 12.0-16.0 [facility] Comment on above: Performed By: #### C BC #### [facility] [address] [place] [address] Dr. Emilia Snell IG # 0.02 10e3/ul Normal 0.00-0.03 [facility] Comment on above: Performed By: #### C BC #### [facility] [address] [place] [address] Dr. Emilia Snell IG % 0.2 % Normal 0.0-0.5 [facility] Comment on above: Performed By: #### C BC #### [facility] [address] [place] [address] Dr. Emilia Snell LYMPH # 2.3 103/ul Normal 1.2-3.8 [facility] Comment on above: Performed By: #### C BC #### [facility] [address] [place] [address] Dr. Emilia Snell Lymphocytes/100 WBC (Bld) 20.7 % Normal 20.5-60.0 [facility] Comment on above: Performed By: #### C BC #### [facility] [address] [place] [address] Dr. Emilia Snell MANUAL DIFF REQ NO Normal [facility] Comment on above: Performed By: #### C BC #### [facility] [address] [place] [address] Dr. Emilia Snell MCH (RBC) [Entitic mass] 29.8 pg Normal 26.7-34.0 [facility] Comment on above: Performed By: #### C BC #### [facility] [address] [place] [address] Dr. Emilia Snell MCHC (RBC) [Mass/Vol] 34.0 g/dL Normal 29.9-35.2 [facility] Comment on above: Performed By: #### C BC #### [facility] [address] [place] [address] Dr. Emilia Snell MCV (RBC) [Entitic vol] 87.6 fL Normal 81.0-99.0 [facility] Comment on above: Performed By: #### C BC #### [facility] [address] [place] [address] Dr. Emilia Snell MONO # 0.6 103/ul Normal 0.3-0.8 [facility] Comment on above: Performed By: #### C BC #### [facility] [address] [place], [place] [id number] Dr. Emilia Snell Monocytes/100 WBC (Bld) 5.4 % Normal 1.7-12.0 [facility] Comment on above: Performed By: #### C BC #### [facility] [address] [place] [address] Dr. Emilia Snell NEUT # 7.9 103/ul Critically high 1.4-6.5 [facility] Comment on above: Performed By: #### C BC #### [facility] [address] [place] [address] Dr. Emilia Snell Neutrophils/100 WBC (Bld) 70.3 % Normal 43.0-75.0 [facility] Comment on above: Performed By: #### C BC #### [facility] [address] [place] [address] Dr. Emilia Snell Platelet mean volume (Bld) [Entitic vol] 10.0 fL Normal 9.5-13.5 [facility] Comment on above: Performed By: #### C BC #### [facility] [address] [place] [address] Dr. Emilia Snell PLT 346 103/ul Normal 150-450 [facility] Comment on above: Performed By: #### C BC #### [facility] [address] [place] [address] Dr. Emilia Snell RBC 4.26 106/ul Normal 4.20-5.40 [facility] Comment on above: Performed By: #### C BC #### [facility] [address] [place] [address] Dr. Emilia Snell WBC 11.2 103/ul Critically high 4.0-11.0 [facility] Comment on above: Performed By: #### C BC #### [facility] [address] [place], [place] [id number] Dr. Emilia Snell CULTURE URINEon 12-27-2020 CULTURE URINE Culture Observations : NO GROWTH. Normal [facility] Comment on above: Performed By: #### R HOG #### [facility] [address] [place] [address] Dr. Emilia Snell GLYCOHEMOGLOBIN A1Con 2020 ADA RECOMMENDATION ADA THERAPEUTIC TARGET 6.0 - 7.0 ACTION SUGGESTED > 7.0 Normal [facility] Comment on above: Performed By: #### G LU1HR #### [facility] [address] [place] [address] Dr. Emilia Snell Glucose [Mass/Vol] 103 mg/dL Normal [facility] Comment on above: Performed By: #### G LU1HR #### [facility] [address] [address] [address] Emilia Snell HbA1c (Bld) [Mass fraction] 5.2 % Normal <=6.0 [facility] Comment on above: Performed By: #### G LU1HR #### [facility] [address] [place] [address] Dr. Emilia Snell MULU BOX TEST PT SEND OUTo n 12-27-2020 SENT TO REF LAB 12/27/2020 Normal [facility] Comment on above: Performed By: #### A BID #### [facility] [address] [place] [address] Dr. Emilia Snell TYPE AND SCREENon 12-27-2020 TYPE AND SCREEN Negative Normal [facility] Comment on above: Performed By: #### T NS #### [facility] [address] [place] [address] Dr. Emilia Snell US PREG TVon 12-05-2020 US PREG TV EXAMINATION: US PREG TV HISTORY: Irregular periods COMPARISON: No relevant comparison available. FINDINGS: Transvaginal images Pittman intrauterine gestation MSD: 2.50 cm, 7 weeks 4 days CRL: 1.45 cm, 7 weeks 5 days Yolk sac: 0.364 cm Heart rate: 65 bpm Cervix: Closed, 3.2 cm. Small amount of fluid identified in the endocervical canal measuring up to 2 mm. Anechoic echogenicity in the cervix likely nabothian cystr The uterus is normal in appearance, anteverted. The right ovary is normal in appearance measuring 3.5 x 3.6 x 2.5 cm. Left ovary is not visualized. Clinical age: 7 weeks 6 days Clinical AGGIE: 07/18/2021 Ultrasound age: 7 weeks 5 days Ultrasound AGGIE: 07/19/2021 IMPRESSION: Viable pittman intrauterine gestation measuring 7 weeks 5 days Electronically authenticated by: NELLY GARDINER Date: 2020-12-05 11:54 Normal [facility] 10-10-2018 ALT No additional P-5'-P [Catalytic activity/Vol] 11 Int._Unit/L Normal 6-46 [facility] Comment on above: Performed By: #### 2 [id number] #### [facility] [address] [place] [address] Alk Phoson 10-10-2018 ALP [Catalytic activity/Vol] 52 Int._Unit/L Normal 21- [facility] Comment on above: Performed By: #### 2 [id number], [id number] #### [facility] [address] [place] [address] BUNon 10-10-2018 Urea nitrogen [Mass/Vol] 14 mg/dL Normal 5- [facility] Comment on above: Performed By: #### 2 [id number], [id number], [id number] #### [facility] [address] [place] [address] CO2on 10-10-2018 CO2 [Moles/Vol] 23 mmol/L Normal - [facility] Comment on above: Performed By: #### 2 [id number], [id number] #### [facility] [address] [place] [address] Vital Signs Date Time Vital Sign Value Performing Clinician Facility 12-26-2023 16:37-0400 Body mass index (BMI) [Ratio] 36.18 kg/m2 [employer] Work Phone: [facility] 12-26-2023 16:37-0400 Body weight 104.78 kg [employer] Work Phone: [facility] 11-28-2023 16:51-0400 Body height 170.18 cm [facility] 11-28-2023 16:51-0400 Body mass index (BMI) [Ratio] 35.2 kg/m2 [facility] 11-28-2023 16:51-0400 Body temperature 98.8 [degF] [facility] 11-28-2023 16:51-0400 Body weight 102.05 kg [facility] 11-28-2023 16:51-0400 Heart rate 81 /min [facility] 11-28-2023 16:51-0400 Respiratory rate 18 /min [facility] 11-28-2023 16:51-0400 SaO2% (BldA) [Mass fraction] 98 % [facility] 06-07-2023 12:11-0400 Body height 171.45 cm [facility] 06-07-2023 12:11-0400 Body mass index (BMI) [Ratio] 31.6 kg/m2 [facility] 06-07-2023 12:11-0400 Body temperature 98.1 [degF] [facility] 06-07-2023 12:11-0400 Body weight 92.98 kg [facility] 06-07-2023 12:11-0400 Heart rate 118 /min [facility] 06-07-2023 12:11-0400 Respiratory rate 18 /min [facility] 06-07-2023 12:11-0400 SaO2% (BldA) [Mass fraction] 98 % [facility] 09-01-2021 09:38-0400 Blood Pressure Location Jakub LEX [facility] 09-01-2021 09:38-0400 Diastolic blood pressure 65 mm[Hg] Jakub BURNETT [facility] 09-01-2021 09:38-0400 Heart rate 79 /min Jakub BURNETT [facility] 09-01-2021 09:38-0400 Respiratory rate 16 /min Jakub BURNETT [facility] [place] 09-01-2021 09:38-0400 Systolic blood pressure 104 mm[Hg] Jakub BURNETT [facility] Encounters Encounter Date Encounter Type Care Provider Facility Start: 12-26-2023 End: 12-26-2023 Patient encounter procedure Fawad Rajiv DO Work Phone: [facility] Comment on above: IUD check up; PCOS (polycystic ovarian syndrome); Irregular periods/menstrual cycles; Pelvic pain in female; Encounter for weight management; Encounter for IUD removal Start: 12-26-2023 End: 12-26-2023 ambulatory FAWAD RAJIV Not Available Start: 12-26-2023 End: 12-26-2023 Bamboo flowsheet Fawad Rajiv DO Work Phone: [facility] Start: 12-26-2023 End: 12-26-2023 Bamboo flowsheet Fawad Rajiv DO Work Phone: [facility] Start: 11-28-2023 End: 11-28-2023 ambulatory [facility] Work Phone: Start: 11-28-2023 End: 11-28-2023 Patient encounter procedure [facility] Physician [facility] Work Phone: Start: 07-06-2023 End: 07-06-2023 ambulatory FAWAD RAJIV Not Available Start: 06-08-2023 End: 06-08-2023 ambulatory FAWAD RAJIV Not Available Start: 06-07-2023 End: 06-07-2023 ambulatory [facility] Work Phone: Start: 06-07-2023 End: 06-07-2023 Patient encounter procedure [facility] Physician [facility] Work Phone: Start: 09-30-2021 End: 09-30-[address] STEPHANIE LAGUERRE Facility:[facility] Start: 09-22-2021 End: 09-22-2021 Patient encounter procedure Jakub BURNETT [facility] [place] Start: 09-16-2021 Encounter for preprocedural laboratory examination DR JAKUB BURNETT [facility] Start: 09-16-2021 End: 09-16-[address] JAKUB BURNETT Facility:[facility] Start: 09-13-2021 Encounter for other preprocedural examination DR JAKUB BURNETT [facility] Start: 09-12-2021 End: 09-13-[address] JAKUB BURNETT Facility:[facility] Start: 09-12-2021 End: 09-13-2021 Encounter for preprocedural laboratory examination DR JAKUB BURNETT Facility:[facility] Start: 09-08-2021 End: 09-09-[address] JAKUB BURNETT Facility:[facility] Start: 09-08-2021 End: 09-09-2021 Encounter for other preprocedural examination DR JAKUB BURNETT Facility:[facility] Start: 09-01-2021 End: 09-01-2021 Patient encounter procedure Jakub BURNETT [facility] [place] Start: 08-14-2021 End: 08-16-[address] STEPHANIE LAGUERRE Facility:[facility] Start: 07-21-2021 End: 07-21-[address] FAWAD VANCE Facility:[facility] Start: 07-20-[address] FAWAD VANCE Facility :[facility] Start: 07-15-2021 End: 07-15-[address] FAWAD VANCE Facility:[facility] Start: 07-13-[address] FAWAD VANCE Facility :[facility] Start: 07-11-2021 End: 07-13-2021 Evaluation and management of inpatient DR FAWAD VANCE Facility:[facility] Start: 07-09-2021 End: 07-09-[address] FAWAD VANCE Facility:[facility] Start: 07-06-2021 End: 07-06-[address] FAWAD VANCE Facility:[facility] Start: 07-02-2021 End: 07-02-[address] FAWAD VANCE Facility:[facility] Start: 06-29-2021 End: 06-29-[address] RAMONITA RODRIGUEZ Facility:[facility] Start: 06-25-2021 End: 06-25-[address] FAWAD VANCE Facility:[facility] Start: 06-22-2021 End: 06-22-[address] FAWAD VANCE Facility:[facility] Start: 06-18-2021 End: 06-18-[address] FAWAD VANCE Facility:[facility] Start: 06-15-2021 End: 06-15-[address] RAMONITA RODRIGUEZ Facility:[facility] Start: 06-11-2021 End: 06-11-[address] FAWAD VANCE Facility:[facility] Start: 06-08-2021 End: 06-08-[address] RAMONITA RODRIGUEZ Facility:[facility] Start: 06-05-2021 End: 06-05-[address] RAMONITA RODRIGUEZ Facility:[facility] Start: 06-04-2021 End: 06-04-[address] FAWAD VANCE Facility:[facility] Start: 06-01-2021 End: 06-01-[address] RAMONITA RODRIGUEZ Facility:[facility] Start: 05-28-2021 End: 05-28-[address] FAWAD VANCE Facility:[facility] Start: 05-25-2021 End: 05-25-[address] RAMONITA RODRIGUEZ Facility:[facility] Start: 05-05-2021 End: 05-06-[address] FAWAD VANCE Facility:[facility] Start: 04-27-2021 End: 04-28-[address] FAWAD VANCE Facility:[facility] Start: 04-27-2021 End: 04-28-[address] FAWAD VANCE Facility:[facility] Start: 04-11-2021 End: 04-12-[address] FAWAD VANCE Facility:[facility] Start: 04-07-2021 End: 04-08-[address] FAWAD VANCE Facility:[facility] Start: 03-02-2021 End: 03-03-[address] FAWAD VANCE Facility:[facility] Start: 02-09-2021 End: 02-10-2021 ambulatory MARILYN SHAW Facility:[facility] Start: 02-08-2021 End: 02-08-2021 ambulatory MARILYN SHAW Facility:[facility] Start: 01-21-2021 End: 01-21-[address] FAWAD VANCE Facility:[facility] Start: 12-27-2020 End: 12-28-[address] FAWAD VANCE Facility:[facility] Start: 12-05-2020 End: 12-06-[address] FAWAD VANCE Facility:[facility] Procedures Date Procedure Procedure Detail Performing Clinician Start: 12-26-2023 IUD REMOVAL Fawad hawley DO Work Phone: Start: 09-16-2021 Laparoscopic cholecystectomy Jakub BURNETT Start: 07-11-2021 Extraction of Produc ts of Conception, Low Cervical, Open Approach DR FAWAD VANCE Start: 07-11-2021 Drainage of Amniotic Fluid, Therapeutic from Products of Conception, Via Natural or Artificial Opening DR FAWAD VANCE Start: 07-10-2021 Introduction of Othe r Hormone into Peripheral Vein, Percutaneous Approach DR FAWAD VANCE Start: 03-07-2021 section Yg BURNETT Tonsillectomy and adenoidectomy Jakub BURNETT Plan of Treatment Date Care Activity Detail Author Start: 01-25-2024 End: 01-25-2024 Patient encounter procedure 01/25/2024 2:30 PM EST Office Visit [facility] [address] [place] [address] Lillian Galicia PA [address] [place] [address] [facility] Start: 12-26-2023 End: 12-26-2023 Patient encounter procedure 12/26/2023 3:50 PM EDT Office Visit [facility] [address] [place] [address] Rajiv, Fawad, [address] [place] [address] Arrived [facility] Comment on above: Arrived Start: 12-26-2023 End: 12-25-2024 CBC W Auto Differential panel - Blood CBC and differential Lab Routine PCOS (polycystic ovarian syndrome) Expected: 12/26/2023 (Approximate), Expires: 12/25/2024 [facility] Comment on above: Expected: 12/26/2023 (Approximate), Expires: 12/25/2024 Start: 12-26-2023 End: 12-25-2024 DHEA DHEA Lab Routine PCOS (polycystic ovarian syndrome) Expected: 12/26/2023, Expires: 12/25/2024 [facility] Comment on above: Expected: 12/26/2023 , Expires: 12/25/2024 Start: 12-26-2023 End: 12-25-2024 DHEA-sulfate DHEA-sulfate Lab Routine PCOS (polycystic ovarian syndrome) Expected: 12/26/2023 (Approximate), Expires: 12/25/2024 [facility] Comment on above: Expected: 12/26/2023 (Approximate), Expires: 12/25/2024 Start: 12-26-2023 End: 12-25-2024 Follicle stimulating hormone Follicle stimulating hormone Lab Routine PCOS (polycystic ovarian syndrome) Expected: 12/26/2023 (Approximate), Expires: 12/25/2024 [facility] Comment on above: Expected: 12/26/2023 (Approximate), Expires: 12/25/2024 Start: 12-26-2023 End: 12-25-2024 hCG, quantitative, hCG, quantitative, Lab Routine PCOS (polycystic ovarian syndrome) Expected: 12/26/2023 (Approximate), Expires: 12/25/2024 [facility] Work Phone: Comment on above: Expected: 12/26/2023 (Approximate), Expires: 12/25/2024 Start: 12-26-2023 End: 12-25-2024 Hemoglobin A1c/Hemoglobin.total in Blood Hemoglobin A1c Lab Routine PCOS (polycystic ovarian syndrome) Expected: 12/26/2023 (Approximate), Expires: 12/25/2024 [facility] Comment on above: Expected: 12/26/2023 (Approximate), Expires: 12/25/2024 Start: 12-26-2023 End: 12-25-2024 Luteinizing hormone Luteinizing hormone Lab Routine PCOS (polycystic ovarian syndrome) Expected: 12/26/2023 (Approximate), Expires: 12/25/2024 [facility] Comment on above: Expected: 12/26/2023 (Approximate), Expires: 12/25/2024 Start: 12-26-2023 End: 12-25-2024 TESTOSTERONE, FREE TESTOSTERONE, FREE Lab Routine PCOS (polycystic ovarian syndrome) Expected: 12/26/2023 (Approximate), Expires: 12/25/2024 [facility] Comment on above: Expected: 12/26/2023 (Approximate), Expires: 12/25/2024 Start: 12-26-2023 End: 12-25-2024 Testosterone, free, total Testosterone, free, total Lab Routine PCOS (polycystic ovarian syndrome) Expected: 12/26/2023 (Approximate), Expires: 12/25/2024 [facility] Comment on above: Expected: 12/26/2023 (Approximate), Expires: 12/25/2024 Start: 12-26-2023 End: 12-25-2024 Thyrotropin [Units/volume] in Serum or Plasma TSH Lab Routine PCOS (polycystic ovarian syndrome) Expected: 12/26/2023 (Approximate), Expires: 12/25/2024 [facility] Comment on above: Expected: 12/26/2023 (Approximate), Expires: 12/25/2024 Start: 12-26-2023 End: 12-25-2024 Thyroxine (T4) free [Mass/volume] in Serum or Plasma T4, free Lab Routine PCOS (polycystic ovarian syndrome) Expected: 12/26/2023 (Approximate), Expires: 12/25/2024 [facility] Comment on above: Expected: 12/26/2023 (Approximate), Expires: 12/25/2024 Start: 12-26-2023 End: 12-25-2024 US for US PELVIS-TRANSVAG IF INDICATED Imaging Routine PCOS (polycystic ovarian syndrome) Expected: 12/26/2023 (Approximate), Expires: 12/25/2024 [facility] Comment on above: Expected: 12/26/2023 (Approximate), Expires: 12/25/2024 HSV nonspecific, IgG HSV nonspec ific, IgG Lab Routine Irregular periods/menstrual cycles Pelvic pain in female Ordered: 12/26/2023 [facility] Comment on above: Ordered: 12/26/2023 Payers Date Payer Category Payer Private Health Insurance GENERIC COMMERCIAL [id number] 2022 Unknown [id number] 1995 Unknown [id number] 2.16.840.1.255808.3.579. 2.593 1995 Unknown [id number] 2.16.840.1.030789.3.579. 2.593 1995 Unknown [id number] 2.16.840.1.771065.3.579. 2.593 1995 Unknown [id number] 2.16.840.1.354533.3.579. 2.593 1995 Unknown [id number] 2.16.840.1.359799.3.579. 2.593 1995 Unknown [id number] 2.16.840.1.237475.3.579. 2.593 1995 Unknown [id number] 2.16.840.1.532787.3.579. 2.593 1995 Unknown [id number] 2.16.840.1.962817.3.579. 2.593 1995 Unknown [id number] 2.16.840.1.297287.3.579. 2.593 1995 Unknown [id number] 2.16.840.1.816367.3.579. 2.593 1995 Unknown [id number] 2.16.840.1.596725.3.579. 2.593 1995 Unknown [id number] 2.16.840.1.846984.3.579. 2.593 1995 Unknown [id number] 2.16.840.1.258181.3.579. 2.593 1995 Unknown [id number] 2.16.840.1.557096.3.579. 2.593 1995 Unknown [id number] 2.16.840.1.574902.3.579. 2.593 1995 Unknown [id number] 2.16.840.1.787340.3.579. 2.593 1995 Unknown [id number] 2.16.840.1.928823.3.579. 2.593 1995 Unknown [id number] 2.16.840.1.446982.3.579. 2.593 1995 Unknown [id number] 2.16.840.1.286581.3.579. 2.593 1995 Unknown [id number] 2.16.840.1.731983.3.579. 2.593 1995 Unknown [id number] 2.16.840.1.927700.3.579. 2.593 1995 Unknown [id number] 2.16.840.1.920388.3.579. 2.593 1995 Unknown [id number] 2.16.840.1.841470.3.579. 2.593 1995 Unknown [id number] 2.16.840.1.573973.3.579. 2.593 1995 Unknown [id number] 2.16.840.1.233492.3.579. 2.593 1995 Unknown [id number] 2.16.840.1.085359.3.579. 2.593 1995 Unknown [id number] 2.16.840.1.800665.3.579. 2.593 1995 Unknown [id number] 2.16.840.1.548489.3.579. 2.593 1995 Unknown [id number] 2.16.840.1.758644.3.579. 2.593 1995 Unknown [id number] 2.16.840.1.497703.3.579. 2.593 1995 Unknown [id number] 2.16.840.1.817042.3.579. 2.593 1995 Unknown [id number] 2.16.840.1.210295.3.579. 2.593 1995 Unknown [id number] 2.16.840.1.332344.3.579. 2.593 1995 Unknown [id number] 2.16.840.1.224467.3.579. 2.593 1995 Unknown [id number] 2.16.840.1.016637.3.579. 2.593 1995 Unknown [id number] 2.16.840.1.417679.3.579. 2.593 1995 Unknown [id number] 2.16.840.1.665147.3.579. 2.593 1995 Unknown [id number] 2.16.840.1.346644.3.579. 2.1259 1995 Unknown [id number] 2.16.840.1.599491.3.579. 2.1259 1995 Unknown [id number] 2.16.840.1.782219.3.579. 2.1259 1959 Self-pay [id number] 1959 Unknown [id number] 1959 Unknown [id number] Unknown [id number] 2.16.840.1.799741.3.579. 2.593 Unknown Demi [id number] Social History Date Type Detail Facility Start: 09-01-2021 End: 08-14-2022 Tobacco smoking status Never smoked tobacco (finding) [facility] Tobacco smoking status Never [facility] Start: 07-06-2023 [facility] Start: 06-07-2023 Tobacco smoking stat [facility] Ex-smoker (finding) [facility] Start: 1995 Sex Assigned At Female F [facility] Start: 07-06-2023 End: 12-26-2023 Alcoholic beverage intake Lifetime non-drinker (finding) [facility] Start: 07-06-2023 History of Social function [facility] Start: 1995 Sex assigned at Not on file [facility] Functional Status Date Assessment Result Facility 09-01-2021 Functional Status N/A [facility] Clinical Notes 07-11-2021 to 12-26-2023 Carlyn Lopez LPN - 12/26/2023 3:50 PM EDT Note Date & Type Note Facility 12-26-2023 History of Present illness Narrative Associated Order(s): IUD Removal Post-Procedure Diagnose(s): IUD check up Reason for Appointment: Patient ID: Marissa Lara is a 28 y.o. female who presents for Contraception (Pt present today for IUD concerns) Patient presents today for a IUD Removal appointment. MEDICATIONS Current Outpatient Medications Medication Instructions b complex vitamins capsule 1 capsule, Oral, Daily Levonorgestrel (Mirena, 52 MG,) 20 MCG/DAY intrauterine device as directed Intrauterine metFORMIN XR (GLUCOPHAGE-XR) 500 mg, Oral, Daily with evening meal, Do not crush, chew, or split. multivitamin with minerals (Cerovite) 18-400 mg-mcg tablet tablet 1 tablet, Oral, Daily ALLERGIES No Known Allergies SURGICAL HISTORY Past Surgical History: Procedure Laterality Date SECTION, LOW TRANSVERSE TONSILLECTOMY REVIEW OF SYSTEMS Review of Systems: Review of Systems Genitourinary: Positive for menstrual problem, pelvic pain and vaginal bleeding. All other systems reviewed and are negative. OBJECTIVE Objective: Physical Exam Constitutional: Appearance: Normal appearance. She is well-developed. Genitourinary: Vulva normal. Cardiovascular: Rate and Rhythm: Normal rate and regular rhythm. Pulmonary: Effort: Pulmonary effort is normal. Breath sounds: Normal breath sounds. Abdominal: General: Bowel sounds are normal. There is no distension. Palpations: Abdomen is soft. Tenderness: There is no abdominal tenderness. There is no guarding or rebound. Musculoskeletal: General: No swelling. Normal range of motion. Right lower leg: No edema. Left lower leg: No edema. Neurological: Mental Status: She is alert and oriented to person, place, and time. Skin: General: Skin is warm and dry. Psychiatric: Mood and Affect: Mood normal. Behavior: Behavior normal. Vitals and nursing note reviewed. Exam conducted with a triple valve tester present. Vitals: Estimated body mass index is 36.18 kg/m as calculated from the following: Height as of 07/06/23: 5' 7 . Weight as of this encounter: 231 lb. BP: No LMP recorded. Patient has had an implant. ASSESSMENT & PLAN Assessment/Plan Encounter Diagnosis: ICD-10-CM 1. IUD check up Z30.431 2. PCOS (polycystic ovarian syndrome) E28.2 hCG, quantitative, TSH T4, free CBC and differential Follicle stimulating hormone Luteinizing hormone Hemoglobin A1c DHEA-sulfate DHEA US PELVIS-TRANSVAG IF INDICATED TESTOSTERONE, FREE Testosterone, free, total hCG, quantitative, TSH T4, free CBC and differential Follicle stimulating hormone Luteinizing hormone Hemoglobin A1c DHEA-sulfate DHEA TESTOSTERONE, FREE Testosterone, free, total 3. Irregular periods/menstrual cycles N92.6 HSV nonspecific, IgG 4. Pelvic pain in female R10.2 HSV nonspecific, IgG 5. Encounter for weight management Z76.89 metFORMIN XR (Glucophage-XR) 500 MG 24 hr tablet IUD Removal Date/Time: 12/26/2023 5:08 PM Performed by: Fawad Vance DO Authorized by: Fawad Vance DO Consent: Consent obtained: Verbal Consent given by: Patient Procedure risks and benefits discussed: yes Patient questions answered: yes Patient agrees, verbalizes understanding, and wants to proceed: yes Educational handouts given: no Instructions and paperwork completed: no Procedure: Removed with no complications: yes Removal due to mechanical complications of IUD: no Removal due to infection and inflammatory reaction: no Other reason for removal: Pelvic Pain IUD Removal: Patient presents today for removal of IUD. Written consent was obtained and patient was placed in dorsal lithotomy position with feet in stirrups. A sterile speculum was inserted into the vagina and the cervix was visualized. The IUD strings were grasped gently with forceps and the IUD was removed in its entirety without difficulty. The IUD was shown to the patient then properly discarded. Patient presents today for consult to discuss irregular cycles, pelvic pain and weight gain with IUD. Patient to have labs drawn and obtain Ultrasound. Discussed weight loss as she has been unable to loss weight since delivery. Discussed hormonal holiday and removing Mirena IUD. Will start Metformin and return to clinic for Adipex #1 appointment. Follow Up: Patient is to return to the office for annual exam unless needed otherwise Documented by Carlyn Lopez LPN on behalf of: Fawad Vance DO documented in this encounter [facility] 09-16-2021 Note OPERATIVE NOTE OPERATION DATE: 09/16/2021 PREOPERATIVE DIAGNOSIS: History of gallstone pancreatitis, symptomatic cholelithiasis. POSTOPERATIVE DIAGNOSIS: History of gallstone pancreatitis, symptomatic cholelithiasis, as well as scarring of the gallbladder. PROCEDURE: Laparoscopic cholecystectomy. SURGEON: Jakub Burnett M.D. ANESTHESIA: General endotracheal. FOUNDRY MELT SUPERVISOR: TINO Van ESTIMATED BLOOD LOSS: Less than 10 mL. INDICATIONS AND CONSENT: Patient is a 26-year-old female with history of gallstone pancreatitis requiring admission. She has had multiple small stones within the gallbladder, now presents for cholecystectomy. Indications, risks, benefits, alternatives of proceeding with laparoscopic cholecystectomy, possible intraoperative cholangiogram, possible open procedure explained extensively to the patient, including risks of bleeding, infection, scarring, pain, bile duct injury, bowel injury, need for intraoperative cholangiogram, postoperative ERCP or further surgery. All of her questions were answered. Informed consent was obtained. PROCEDURE: Patient was brought to the operating room, placed in the supine position. General anesthesia was induced. She was prepped and draped in the usual sterile fashion. A supraumbilical incision was made with the scalpel, then carried down to subcutaneous tissue using blunt dissection. The fascia was grasped and incised. Two 0 Vicryl stay sutures placed in the fascia. The Desai trocar was then inserted and secured using the stay sutures. The abdomen was then insufflated with carbon dioxide to a pressure of 15 mm/Hg. The scope was then inserted and the abdomen was visualized. Three 5 mm ports were then placed; one in the subxiphoid area, two in the right subcostal area, all under direct visualization. The patient was placed in reverse Trendelenburg position with the right side up. Patient does have a very medial gallbladder that was close to the falciform ligament, which was adherent to the body of the gallbladder, as well as the small accessory liver lobe. This was freed up using electrocautery. The fundus was then grasped, retracted cephalad on the patient's right. The infundibulum was scarred. It was freed up using electrocautery. It was then retracted bilaterally and inferiorly. Dissection began just below the infundibulum, where the cystic duct and cystic artery were carefully dissected out. The infundibulum was completely freed up from the liver. Critical view safety was obtained. The cystic artery was clipped with two regular clips proximally and one distally and then divided. The duct was somewhat scarred and bent and the cystic duct was freed up. There did appear to be some stones in the distal infundibulum which were milked back and Hem-O-Deng clips were placed proximally towards the common duct side and a regular clip distally. It was then divided. The gallbladder was then taken down from the liver bed using electrocautery. Once the gallbladder was completely removed, it was brought out in an Endocatch bag through the umbilical port site. The upper abdomen was then copiously irrigated until clear. There was good hemostasis. No evidence of bile leak. All port sites were examined upon withdrawal of the ports. There was noted to be good hemostasis. The umbilical port site fascia was closed with 0 Vicryl figure of eight suture. All port sites infiltrated with 0.5% Marcaine. The skin was then closed with interrupted 4-0 subcuticular Monocryl sutures and skin glue. Sterile dressing was applied at the umbilical incision. Patient tolerated procedure well, was extubated and sent to recovery room in good condition. CC: Stephanie Laguerre M.D. [facility] Signed and Approved by: DR JAKUB BURNETT . 09/18/2021 12:38:00 [facility] 09-01-2021 Note Chief Complaint consultation for gallstone pancreatitis HPI Staff 26 year old female presents on consultation from Dr. Laguerre for gallstone pancreatitis. Admitted to [facility] 08/14 with abdominal pain, nausea and vomiting; discharged 08/16. One episode of upset stomach after eating eggs, otherwise, no abdominal pain, nausea or vomiting since discharge. History of Present Illness 26 yo female with h/o asthma, ADHD, migraines; GERD, referred for gallstone pancreatitis; patient admitted to [facility] 08/14/21 with gallstone pancreatitis after 4 day h/o upper abd pain, N/V; US with small stones and sludge and mild dilation of cbd; symptoms improved with bowel rest and hydration; discharged on 08/16/21; has been eating low fat diet, no N/V; no abdominal pain, normal bms, no fevers; abdominal operations significant for approx 6 weeks ago; had mild biliary colic symptoms during recent ; no h/o jaundice or pancreatitis; no asa or NSAID use currently, no alcohol use; no fmhx of GI malignancy or IBD. no tobacco use. Review of Systems PHQ Score Initial Depression Screen Score: 0 ROS - Provider Constitutional: no fever, no sweats, no weight loss. Eyes: no glasses, no blurred vision, no visual loss. ENMT: no dentures, no hoarseness, no swallowing difficulties, no hearing loss, no ear infection(s), no nose bleeds. Cardiovascular: normal blood pressure, no chest pain, regular heartbeat, no heart murmur. Respiratory: no shortness of breath, no cough, no asthma, no wheezing. Gastrointestinal: no nausea, no vomiting, no diarrhea, no constipation, no blood in stool, no change in bowel habits, yes abdominal pain, no hepatitis. Genitourinary: no kidney stones, no urine infection, no dysuria. Musculoskeletal: no pain, no weakness. Skin: no changing moles, no rash, no skin lumps. Neurologic: no seizures, no epilepsy, no headache. Psychiatric: no emotional or psychiatric problem. Heme/Lymph: no bleeding problems, no anemia, no blood clots, no transfusions. Allergy/Immunologic: no swollen lymph nodes/glands, no IV drug abuse. Other: Additional ROS info: Except as noted in the above Review of Systems and in the History of Present Illness, all other systems have been reviewed and are negative or noncontributory. Physical Exam Vitals & Measurements HR: 79(Peripheral) RR: 16 BP: 104/65 HT: 170.18 cm HT: 170.2 cm WT: 88.5 kg WT: 88.5 kg BMI: 30.56 HEENT: normal conjunctiva, sclera clear, no scleral icterus, EOM intact, PERRLA, oral mucosa moist without lesions. Neck: trachea midline, no mass, symmetric, no thyromegaly or nodules, no adenopathy Respiratory: lungs CTA, respirations non labored. Cardiovascular: regular rate and rhythm, no murmur, no pedal edema or varicosities. Gastrointestinal: soft, non distended, no tenderness, no masses, no palpable hernias, diastasis recti no, no hepatosplenomegaly; normal bs Lymphatic: no cervical adenopathy, Musculoskeletal: normal gait, digits and nails without infection, nodes, cyanosis, clubbing. Skin: no rashes, no lesions, no ulcers, no subcutaneous nodules, induration. Psychiatric/Neuro: oriented to time, place, person, judgement normal, affect appropriate for age, insight intact, no focal deficits. Tests: labs reviewed, x-rays reviewed, review of old records completed, Discussed surgical options, risks, and possible complications with patient. Assessment/Plan 1. Gallstone pancreatitis (K85.10: Biliary acute pancreatitis without necrosis or infection) plan laparoscopic cholecystectomy with possible intraoperative cholangiogram; informed consent obtained. continue low fat; will recheck lfts, lipase. Unasyn 3 gms IV prior to OR SCDs Follow-up No qualifying data available Problem List/Past Medical History Ongoing ADHD Asthma BMI 30.0-30.9,adult Gallstone pancreatitis GERD (gastroesophageal reflux disease) Migraines Historical No qualifying data Procedure/Surgical History section (2021), Tonsillectomy and adenoidectomy. Medications ibuprofen 800 mg Tab, 800 mg= 1 tab(s), Oral, q8hr, PRN Multivitamins with Vitamin B Complex, Vitamin C, Minerals and L-Methylfolate oral capsule, 1 cap(s), Oral, Daily Zofran ODT 4 mg Tab-Dis, 4 mg= 1 tab(s), Oral, TID Allergies No Known Allergies No Known Medication Allergies Social History Alcohol - Denies Alcohol Use, 08/09/2017 Substance Abuse - Denies Substance Abuse, 08/09/2017 Tobacco - Denies Tobacco Use, 08/09/2017 Never (less than 100 in lifetime) Tobacco Use:. Never Smokeless Tobacco Use:., 09/01/2021 Family History Family history is negative [facility] Comment on above: Result Comment: Elec tronically Signed By: LEX UNDERWOOD, Jakub Thomas\Date and Time Signed: 09/01/21 17:04 EDT 07-11-2021 Note OP Note OPERATION DATE: 07/11/2021 PROCEDURE: Primary low transverse section. PREOPERATIVE DIAGNOSIS: 1. Intrauterine at 39 weeks. 2. LGA. 3. Polyhydramnios. 4. CPD. 5. Failure to descend. POSTOPERATIVE DIAGNOSIS: 1. Intrauterine at 39 weeks. 2. LGA. 3. Polyhydramnios. 4. CPD. 5. Failure to descend. ANESTHESIA: Spinal with Duramorph. SURGEON: Fawad Vance D.O. FOUNDRY MELT SUPERVISOR: TINO Talbert URINE OUTPUT: Yellow and clear. BLOOD LOSS: 600 mL. SPECIMEN: Placenta. FINDINGS: Viable , Apgars 8 at 1, 9 at 5; weight unknown at this time. PROCEDURE: Patient was taken back to the Operating Room where she was given a spinal anesthesia with Duramorph without difficulty. She was prepped and draped in the normal sterile fashion. A Pfannenstiel skin incision was then made 2 cm above the symphysis pubis and carried down to underlying rectus fascia using a Bovie. The fascia was incised in the midline and extended laterally using Levi scissors. Two Lila clamps were placed on the superior aspect of the fascia and dissected off the underlying rectus muscles. The same was performed on the inferior aspect as well. The muscles were then in the midline. Peritoneum was identified and entered bluntly. The peritoneum was then extended superiorly and inferiorly with good visualization of the bladder. The bladder blade was inserted. A low transverse incision was made on the patient's uterus and extended laterally digitally. The was then delivered atraumatically after the bladder blade was removed in the cephalic position. The cord was clamped and cut. Cord blood was obtained. The infant was handed off to awaiting team. The patient's placenta was spontaneously delivered. The uterus was then exteriorized. The uterus was cleared of all clots and debris. The bladder blade was reinserted. The patient's uterine incision was closed using #0 Vicryl in a running lock fashion. Excellent hemostasis was assured. The uterus was then returned to the patient's abdomen. The patient's abdomen was copiously irrigated using warm saline. Peritoneal gutters were cleared of all clots and debris. Again excellent hemostasis was assured. The patient's peritoneum was closed using 3-0 Vicryl in a running fashion. The patient's fascia was closed using #0 Vicryl in a running fashion. The patient's skin was closed using 4-0 Vicryl subcuticularly. The patient tolerated the procedure well. Sponge, lap, and needle counts were correct x2. The patient was taken to the Recovery Room in stable condition. [facility] Signed and Approved by: DR FAWAD VANCE . 07/21/2021 10:13:00 [facility] 07-11-2021 Note DISCHARGE SUMMARY DISCHARGE DATE: 07/22/2021 PRIMARY DIAGNOSES: 1. Uterine at 39 weeks, LDA. 2. Polyhydramnios. 3. Cephalopelvic disproportion. 4. Failure to descend. HOSPITAL COURSE: As expected. Please see chart for full details. LABORATORY DATA: Please see chart. DISCHARGE CONDITION: Stable. CONSULTATION: Anesthesia. DISCHARGE INSTRUCTIONS: 1.Diet: Regular. 2.Medications: a.Percocet 5/325 one to two p.o. every 4-6 hours p.r.n. pain. b.Motrin 800 one p.o. every 8 hours p.r.n. pain. 3.Follow-up in one week. Restrictions: Pelvic rest for 6 weeks. No heavy lifting. May drive when pain free and no longer on narcotics. [facility] Signed and Approved by: DR FAWAD VANCE . 07/23/2021 21:23:00 [facility] Evaluation + Plan note No data available for this section [facility] Evaluation note No assessment inform ation available [facility] Work Phone: Evaluation note Diagnosis Onset Date Ulcer of mouth acute [facility] Work Phone: Evaluation note* Diagnosis IUD check up PCOS (polycystic ovarian syndrome) Polycystic ovaries Irregular periods/menstrual cycles Pelvic pain in female Unspecified symptom associated with female genital organs Encounter for weight management Encounter for IUD removal [facility] No data available for this section [facility] Progress note No data available for this section [facility] Summary Purpose Family History No Family History Records FoundNo Family History Records FoundNo Family History Records FoundNo Family History Records Found Advance Directives No Advanced Directives Records Found Advance Directive Response Recorded Date/ Time Advance Directives No June 06 11:48am Chief Complaint and Reason for Visit Chief Complaint congestion, white sp ots on mouth, itchy throat Chief Complaint Sore throat Reason for Visit Ulcer of mouth Additional Source Comments INFORMATION SOURCE (unrecogn ized section and content) DATE CREATED AUTHOR 10/12/2018 Vidal Dimas [facility] ical Center DATE CREATED AUTHOR AUTHOR'S ORGANIZ ATION 09/23/2021 Leslie Dimas [facility] ical Center DATE CREATED AUTHOR AUTHOR'S ORGANIZ ATION 10/06/2021 [facility] DATE CREATED AUTHOR AUTHOR'S ORGANIZ ATION 12/28/2023 [facility] Care Team (unrecognized sect ion and content) Team Status: Active Member Role Status Dates [facility] Primary Care Provider Active Team Status: Inactive Member Role Status Dates Fanta Andino APRN Attending Provider Active Start: June 07, 2023 End: June 07, 2023 [facility] Primary Care Provider Active Start: June 07, 2023 End: June 07, 2023 Team Status: Inactive Member Role Status Dates [facility] Primary Care Provider Active Start: November 28, 2023 End: November 28, 2023 Vickie Andreson APRN Attending Provider Active S tart: November 28, 2023 End: November 28, 2023 Surveillance Systems Engineer Relationship Specialty Start Date End Date Stephanie Laguerre MD [address] [place] [address] PCP - General Family Medicine 08/19/22 Surveillance Systems Engineer Relationship Specialty Start Date End Date Stephanie Laguerre MD [address] [place] [id number] PCP - General Family Medicine 08/19/22 Goals (unrecognized section and content) Goals may be documented in a n alternate section Reason for Visit (unrecogniz ed section and content) Reason Comments Contraception Pt present today for IUD concerns FOR RECORDS PERTAINING TO PATIENTS WHO ARE OR HAVE BEEN ENROLLED IN A CHEMICAL DEPENDENCY/SUBSTANCEABUSE PROGRAM, SOME INFORMATION MAY BE OMITTED. This clinical summary was aggregated from multiple sources. Caution should be exercised in using it in the provision of clinical care. This summary normalizes information from multiple sources, and as a consequence, information in this document may materially change the coding, format and clinical context of patient data. In addition, data may be omitted in some cases. CLINICAL DECISIONS SHOULD BE BASED ON THE PRIMARY CLINICAL RECORDS. [employer] provides no warranty or guarantee of the accuracy or completeness of information in this document.
[2023-12-28 16:55] LABS: Basophils Absolute Auto 0.1 10^3/uL (0.0-0.1); Basophils Percent Auto 0.7 % (0.2-2.0); Eosinophils Absolute Auto 0.4 10^3/uL (0.0-0.7); Eosinophils Percent Auto 4.8 % (0.9-7.0); Hematocrit 38.2 % (36.0-48.0); Hemoglobin 13.3 g/dL (12.0-16.0); Immature Granulocytes Abs Auto 0.01 10^3/uL (0.00-0.03); Immature Granulocytes Pct Auto 0.1 % (0.0-0.5); Lymphocytes Absolute Auto 3.5 10^3/uL (1.2-3.8); Lymphocytes Percent Auto 38.5 % (20.5-60.0); Mean Corpuscular HGB Conc 34.8 g/dL (29.9-35.2); Mean Corpuscular Hemoglobin 31.2 pg (26.7-34.0); Mean Corpuscular Volume 89.7 fL (81.0-99.0); Mean Platelet Volume 9.6 fL (9.5-13.5); Monocytes Absolute Auto 0.5 10^3/uL (0.3-0.8); Monocytes Percent Auto 5.6 % (1.7-12.0); Neutrophils Absolute Auto 4.5 10^3/uL (1.4-6.5); Neutrophils Percent Auto 50.3 % (43.0-75.0); Platelet Count 354 10^3/uL (150-450); Red Blood Count 4.26 10^6/uL (4.20-5.40); Red Cell Distribution Width 12.1 % (11.0-15.0)
[2023-12-28 17:27] LABS: Estimated Average Glucose 97 mg/dL
[2023-12-28 17:37] LABS: Thyroid Stimulating Hormone 1.744 uIU/mL (0.358-3.740)
[2023-12-28 17:42] LABS: Free T4 0.92 ng/dL (0.76-1.46)
[2023-12-28 17:43] LABS: HCG Quantitative <1 mIU/mL
[2023-12-30 08:13] LABS: FSH 6.7 mIU/mL (.); Luteinizing Hormone(LH) 13.2 mIU/mL (.)
[2024-01-03 00:07] LABS: Testosterone 55 ng/dL (13-71)
[2024-01-03 17:10] LABS: DHEA, Serum 454 ng/dL (31-701)
== END 2023-12-28 16:20 | disposition home or self-care (01) ==
PROVIDERS: PCP Family Medicine; Visit Provider Obstetrics & Gynecology
DX: N92.6 Irregular menstruation, unspecified (principal); R10.2 Pelvic and perineal pain; E28.2 Polycystic ovarian syndrome
CPT/HCPCS: 36415; 82626; 82627; 83001; 83002; 83036; 84402; 84403; 84439; 84443; 84702; 85025; 86695; 86696